=== PATIENT | female | born 1960 | race Caucasian/White ===

== ENCOUNTER 2016-07-16 17:29 | Emergency (ER) | payer BC ==
[2016-07-16 17:32] VITALS: BMI 28.3
[2016-07-16] MEDS ORDERED: Magnesium Sulfate 2 GM in Sodium Chloride 0.9% 100 ML IVPB ONE (17:36)
[2016-07-16 17:38] VITALS: TEMP 98.2
--- NOTE | 2016-07-16 17:41 | ED PDOC ---
Arrival/HPI - General Chief Complaint: Respiratory Distress Time Seen by Provider: 07/16/16 17:34 Historian: Patient - History of Present Illness Narrative History of Present Illness (Text): 07/16/16 17:37 Mayte Mon is a 55 year old female, whose past medical history includes asthma, who presents to the emergency department complaining of asthma exacerbation for 4 days. Patient states that she experiences coughing, wheezing , chest tightness and a slight fever. Patient used her home nebulizer and saw Dr. Adrian, who prescribed medications which brought no relief. Breathing became worse today. Patient denies any other complaint at this time. Time/Duration: < week (4 days) Symptom Onset: Gradual Symptom Course: Worsening Severity Level: Moderate Activities at Onset: Light Context: Home Past Medical History - Provider Review Nursing Documentation Reviewed: Yes - Infectious Disease Hx of Infectious Diseases: None - Tetanus Immunization Tetanus Immunization: Unknown - Reproductive Menopause: Yes - Cardiac Hx Pacemaker: No - Pulmonary Hx Asthma: Yes - Neurological Hx Paralysis: No - HEENT Hx HEENT Disorder: Yes Other/Comment: headaches - Renal Hx Renal Disorder: No - Endocrine/Metabolic Hx Endocrine Disorders: No - Hematological/Oncological Hx Blood Transfusions: No Hx Blood Transfusion Reaction: No - Integumentary Hx Dermatological Disorder: No - Musculoskeletal/Rheumatological Hx Musculoskeletal Disorders: Yes - Gastrointestinal Other/Comment: ABD PAIN - Genitourinary/Gynecological Hx Genitourinary Disorders: No - Psychiatric Hx Substance Use: No - Surgical History Hx Hysterectomy: Yes Hx Inguinal Hernia Repair: Yes Hx Musculoskeletal Surgery: Yes (B/L hammer toe 1991) Other/Comment: BX L BREAST/veins left leg. - Anesthesia Hx Anesthesia Reactions: No Hx Malignant Hyperthermia: No - Suicidal Assessment Feels Threatened In Home Enviroment: No Family/Social History - Physician Review Nursing Documentation Reviewed: Yes Family/Social History: No Known Family HX Smoking Status: Never Smoked Hx Alcohol Use: Yes (social) Frequency of alcohol use: Socially Hx Substance Use: No Hx Substance Use Treatment: No Allergies/Home Meds Allergies/Adverse Reactions: Allergies shrimp Allergy (Intermediate, Verified 06/23/15 14:59) RASH PER PT- DEPENDS ON HOW /WITH WHAT IT SIS COOKED Home Medications: Home Meds Medication Instructions Recorded Confirmed Rosuvastatin Calcium [Crestor] 10 mg PO QPM 01/24/15 06/25/15 Acetaminophen [Tylenol 325mg tab] 650 mg PO Q4 PRN 06/23/15 06/23/15 Albuterol Sulfate [Albuterol 0.09 mg IH QID PRN 06/23/15 06/25/15 Sulfate Hfa] Calcium Carbonate [Tums] 500 mg PO PRN PRN 06/23/15 06/25/15 Cholecalciferol (Vitamin D3) 50,000 unit PO SUN 06/23/15 06/25/15 [Vitamin D] Folic Acid/Mv,Fe,Min [One Daily 1 each PO DAILY 06/23/15 06/25/15 For Women Tablet] Levalbuterol [Xopenex] 1.25 mg IH TID 06/23/15 06/25/15 Prednisone 10 mg PO BID 06/23/15 06/25/15 Omeprazole [Prilosec] 40 mg PO DAILY 06/25/15 06/25/15 Review of Systems - Physician Review All systems were reviewed & negative as marked: Yes - Review of Systems Constitutional: Fevers Eyes: absent: Vision Changes ENT: absent: Hearing Changes Respiratory: SOB, Cough Cardiovascular: Chest Pain (Chest tightness) Gastrointestinal: absent: Abdominal Pain Genitourinary Female: absent: Urine Output Changes Musculoskeletal: absent: Back Pain, Neck Pain Skin: absent: Rash Neurological: absent: Headache, Dizziness Endocrine: absent: Diaphoresis Hemo/Lymphatic: absent: Easy Bleeding Psychiatric: absent: Depression Physical Exam Vital Signs Reviewed: Yes Vital Signs Temp Pulse Resp BP Pulse Ox 07/16/16 19:13 100 H 18 104/64 98 07/16/16 17:36 98.2 F 98 H 20 132/78 99 Temperature: Afebrile Blood Pressure: Normal Pulse: Tachycardic Respiratory Rate: Normal Appearance: Positive for: Well-Appearing, Non-Toxic, Comfortable Pain Distress: None Mental Status: Positive for: Alert and Oriented X 3 - Systems Exam Head: Present: Atraumatic, Normocephalic Pupils: Present: PERRL Extroacular Muscles: Present: EOMI Conjunctiva: Present: Normal Mouth: Present: Moist Mucous Membranes Neck: Present: Normal Range of Motion Respiratory/Chest: Present: Wheezes (Bilateral wheezing ) Cardiovascular: Present: Regular Rate and Rhythm, Normal S1, S2. No: Murmurs Abdomen: Present: Normal Bowel Sounds. No: Tenderness, Distention, Peritoneal Signs Back: Present: Normal Inspection Upper Extremity: Present: Normal Inspection. No: Cyanosis, Edema Lower Extremity: Present: Normal Inspection. No: Edema Neurological: Present: GCS=15, CN II-XII Intact, Speech Normal Skin: Present: Warm, Dry, Normal Color. No: Rashes Psychiatric: Present: Alert, Oriented x 3, Normal Insight, Normal Concentration Medical Decision Making ED Course and Treatment: EKG: Ordered, reviewed, and independently interpreted the EKG. Rate : 103 BPM Rhythm : Sinus Tachycardia Interpretation : No ST-segment elevations or depressions, no T-wave inversions, normal intervals. Comparison : No previous EKG for comparison. 07/16/16 19:00 Reviewed radiology, x-ray no acute disease. No significant change from prior on 03/15/15. 07/16/16 19:10 On reexamination, patient's wheezing significantly improved. Patient states that she feels much better, speaking in full sentences and is in no distress. SPO2 is 97% on room air, patient wishes to go home. Follow up and return caution advised - Lab Interpretations Lab Results: 07/16/16 17:40 07/16/16 17:40 Lab Results 07/16/16 17:40: WBC 4.7 D, RBC 4.96, Hgb 13.5, Hct 41.3, MCV 83.3, MCH 27.2, MCHC 32.7, RDW 14.1, Plt Count 207, MPV 11.7 H, Gran % 58.1, Lymph % (Auto) 28.7 , [place] % (Auto) 10.2 H, Eos % (Auto) 1.9, Baso % (Auto) 1.1, Gran # 2.74, Lymph # 1.4, [place] # 0.5, Eos # 0.1, Baso # 0.05, pO2 44, VBG pH 7.36, VBG pCO2 55.0, VBG HCO3 31.1 H, VBG Total CO2 32.8 H, VBG O2 Sat (Calc) 84.9 H, VBG Base Excess 4.2 H, VBG Potassium 3.1 L, Glucose 78, Lactate 1.3, FiO2 21.0, Sodium 138.0, Potassium 3.1 L, Chloride 107.0, Carbon Dioxide 29, Anion Gap 12, BUN 15 , Creatinine 0.6, Est GFR ( Amer) > 60, Est GFR (Non-Af Amer) > 60, Random Glucose 77, Calcium 8.7, Total Bilirubin 0.4, AST 28, ALT 50, Alkaline Phosphatase 89, Troponin I < 0.01 D, NT-Pro-B Natriuret Pep 45.8, Total Protein 7.6, Albumin 3.8, Globulin 3.8, Albumin/Globulin Ratio 1.0 L, Venous Blood Potassium 3.1 L - RAD Interpretation Radiology Orders: 07/16/16 17:35 CHEST TWO VIEWS (PA/LAT) [RAD] Stat - Medication Orders Current Medication Orders: Discontinued Medications Albuterol/Ipratropium (Duoneb 3 Mg/0.5 Mg (3 Ml) Ud) 3 ml IH Q15M WILNER Stop: 07/16/16 18:16 Last Admin: 07/16/16 18:32 Dose: 3 ML Magnesium Sulfate 2 gm/ Sodium (Chloride) 104 mls @ 102 mls/hr IVPB ONCE ONE Stop: 07/16/16 18:37 Last Admin: 07/16/16 17:45 Dose: 102 MLS/HR eMAR Start Stop Document 07/16/16 17:45 SRE (Rec: 07/16/16 17:45 SRE [facility] [id number] Intravenous Solution Start Date 07/16/16 Start Time 17:45 End Date 07/16/16 End time 18:45 Total Infusion Time 60 Methylprednisolone (Solu-Medrol) 125 mg IVP STAT STA Stop: 07/16/16 17:36 Last Admin: 07/16/16 17:45 Dose: 125 MG IVP Administration Document 07/16/16 17:45 SRE (Rec: 07/16/16 17:45 [facility] [facility] [id number] Charges for Administration # of IVP Administrations 1 - Scribe Statement The provider has reviewed the documentation as recorded by the Harrison Butts Provider Scribe Attestation: All medical record entries made by the Scribe were at my direction and personally dictated by me. I have reviewed the chart and agree that the record accurately reflects my personal performance of the history, physical exam, medical decision making, and the department course for this patient. I have also personally directed, reviewed, and agree with the discharge instructions and disposition. Disposition/Present on Arrival - Present on Arrival Any Indicators Present on Arrival: No History of DVT/PE: No History of Uncontrolled Diabetes: No Urinary Catheter: No History of Decub. Ulcer: No History Surgical Site Infection Following: None - Disposition Have Diagnosis and Disposition been Completed?: Yes Diagnosis: Asthma exacerbation Disposition: HOME/ ROUTINE Disposition Time: 19:15 Condition: IMPROVED Discharge Instructions (ExitCare): Asthma (ED) Additional Instructions: Please follow up with your doctor on Monday. Return to the ER for any worsening symptoms or for any other concerns. Prescriptions: Albuterol/Ipratropium [Duoneb 3 MG/3 Ml-0.5 MG/3 Ml 3 Ml] 3 ml IH Q6H PRN #10 neb PRN Reason: Wheezing Referrals: Ghulam Adrian MD [Family Provider] - Follow up with primary
[2016-07-16] MEDS: Albuterol-Ipratrop 3 mg / 0.5 (3 ml) UD IH SCH ×3 (17:45→18:32)
[2016-07-16 17:59] LABS: ADD MANUAL DIFF? NO
[2016-07-16 18:06] LABS: VENOUS BLOOD GAS BASE EXCESS 4.2 mmol/L (0.0-2.0); VENOUS BLOOD PH 7.36 (7.32-7.43)
[2016-07-16 18:14] LABS: ALKALINE PHOSPHATASE 89 U/L (38-133); ALT/SGPT 50 U/L (7-56); AST/SGOT 28 U/L (15-39); BILIRUBIN,TOTAL 0.4 mg/dL (0.2-1.3); BLOOD UREA NITROGEN 15 mg/dL (7-21); CALCIUM 8.7 mg/dL (8.4-10.5); CARBON DIOXIDE 29 mmol/L (21-33); CHLORIDE 101 mmol/L (98-107); GFR AFRICAN-AMERICAN > 60; GLUCOSE,RANDOM 77 mg/dL (70-110); POTASSIUM 3.1 mmol/L (3.6-5.0); SODIUM 139 mmol/L (132-148); TOTAL PROTEIN 7.6 g/dL (5.8-8.3)
[2016-07-16 18:15] LABS: BASO # 0.05 K/mm3 (0.0-2.0); BASO % 1.1 % (0.0-3.0); EOS # 0.1 (0.0-0.7); EOS % 1.9 % (1.5-5.0); GRAN # 2.74 (1.4-6.5); GRAN % 58.1 % (50.0-68.0); HEMATOCRIT 41.3 % (36.0-48.0); LYMPH # 1.4 (1.2-3.4); LYMPH % 28.7 % (22.0-35.0); MEAN CELL VOLUME 83.3 fL (80.0-105.0); MEAN CORPUSCULAR HEMOGLOBIN 27.2 pg (25.0-35.0); MEAN CORPUSCULAR HGB CONC 32.7 g/dl (31.0-37.0); MEAN PLATELET VOLUME 11.7 fl (7.0-11.0); MONO # 0.5 (0.1-0.6); MONO % 10.2 % (1.0-6.0); PLATELET COUNT 207 10^3/uL (120.0-450.0); RED CELL DISTRIBUTION WIDTH 14.1 % (11.5-14.5); WHITE BLOOD COUNT 4.7 10^3/ul (4.5-11.0)
[2016-07-16 18:28] LABS: TROPONIN I < 0.01 ng/mL
[2016-07-16 19:15] VITALS: BP 104/64; PULSE 100; RESP 18; O2SAT 98
--- NOTE | 2016-07-17 09:54 | CARD ---
APPROVED REPORT EKG Measurement Heart [id number] <Conclusion> Sinus tachycardia and NSSTW changes, new
--- NOTE | 2016-07-17 10:25 | RAD ---
HISTORY: sob COMPARISON: Comparison made with prior study 03/15/2015 TECHNIQUE: Chest PA and lateral FINDINGS: LUNGS: No acute consolidation. There is a vague somewhat rounded density right lower lung field, overlying the right anterior 5th rib that measures approximately 8 mm. This focus is of uncertain etiology sandeep though could represent a costal cartilage artifact. Possibility of a small parenchymal nodule cannot be excluded. . Consider followup nonemergent CT scan of the chest PLEURA: No significant pleural effusion identified. No pneumothorax apparent. . CARDIOVASCULAR: Normal. OSSEOUS STRUCTURES: Mild multilevel degenerative spondylosis of the thoracic spine. The several chronic appearing anterior wedge deformities seen within the mid thoracic region. VISUALIZED UPPER ABDOMEN: Normal. OTHER FINDINGS: None. IMPRESSION: No acute infiltrates. Small nodular density right lung base overlying the right anterior 5th rib may represent costal cartilage artifact. Small parenchymal nodule not excluded.
== END 2016-07-16 19:15 | disposition home or self-care (01) ==
LOC: ED 17:29
DX: J45.901 Unspecified asthma with (acute) exacerbation (principal)
CPT/HCPCS: 71020; 80053; 82803; 83880; 84484; 85025; 93005; 96365; 96375; 99284; J2930; J3475

== ENCOUNTER 2016-11-19 11:35 | Emergency (ER) | payer BC ==
[2016-11-19 11:40] VITALS: BMI 30.2
[2016-11-19 11:56] VITALS: RESP 18; TEMP 98.3
--- NOTE | 2016-11-19 12:15 | ED PDOC ---
Arrival/HPI - General Time Seen by Provider: 11/19/16 11:50 Historian: Patient - History of Present Illness Narrative History of Present Illness (Text): 11/19/16 12:05 A 55 year old female, whose past medical history includes asthma, presents to the emergency department complaining of constant left sided chest pain since last night. Patient describes the pain as a sharp sensation and notes radiating pain to left shoulder. Patient notes mild shortness and a tingling sensation in her left finger tips, which resolved. She reports using nebulizer treatments at home last night, with no relief. Patient denies any trauma, injury, fever, chills, nausea, vomiting, abdominal pain, cough or any other complaints. Patient recently had an echo and stress test done which showed normal results. PMD: Dr. Adrian Chief Engineer Research: Dr. Sullivan Time/Duration: Other (Last night) Symptom Course: Unchanged Quality: Other Context: Home Past Medical History - Provider Review Nursing Documentation Reviewed: Yes - Infectious Disease Hx of Infectious Diseases: None - Tetanus Immunization Tetanus Immunization: Unknown - Cardiac Hx Pacemaker: No - Pulmonary Hx Asthma: Yes - Neurological Hx Paralysis: No - HEENT Hx HEENT Disorder: Yes Other/Comment: headaches - Renal Hx Renal Disorder: No - Endocrine/Metabolic Hx Endocrine Disorders: No - Hematological/Oncological Hx Blood Transfusions: No Hx Blood Transfusion Reaction: No - Integumentary Hx Dermatological Disorder: No - Musculoskeletal/Rheumatological Hx Musculoskeletal Disorders: Yes - Gastrointestinal Other/Comment: ABD PAIN - Genitourinary/Gynecological Hx Genitourinary Disorders: No - Psychiatric Hx Substance Use: No - Surgical History Hx Hysterectomy: Yes Hx Inguinal Hernia Repair: Yes Hx Musculoskeletal Surgery: Yes (B/L hammer toe 1991) Other/Comment: BX L BREAST/veins left leg. - Anesthesia Hx Anesthesia Reactions: No Hx Malignant Hyperthermia: No - Suicidal Assessment Feels Threatened In Home Enviroment: No Family/Social History - Physician Review Nursing Documentation Reviewed: Yes Family/Social History: No Known Family HX Smoking Status: Never Smoked Hx Alcohol Use: Yes (social) Hx Substance Use: No Hx Substance Use Treatment: No Allergies/Home Meds Allergies/Adverse Reactions: Allergies shrimp Allergy (Intermediate, Verified 06/23/15 14:59) RASH PER PT- DEPENDS ON HOW /WITH WHAT IT SIS COOKED Home Medications: Home Meds Medication Instructions Recorded Confirmed Rosuvastatin Calcium [Crestor] 10 mg PO QPM 01/24/15 11/19/16 Albuterol Sulfate [Albuterol 0.09 mg IH QID PRN 06/23/15 11/19/16 Sulfate Hfa] Calcium Carbonate [Tums] 500 mg PO PRN PRN 06/23/15 11/19/16 Cholecalciferol (Vitamin D3) 50,000 unit PO SUN 06/23/15 11/19/16 [Vitamin D] Levalbuterol [Xopenex] 1.25 mg IH TID 06/23/15 11/19/16 Omeprazole [Prilosec] 40 mg PO DAILY 06/25/15 11/19/16 Review of Systems - Physician Review All systems were reviewed & negative as marked: Yes - Review of Systems Constitutional: absent: Fevers, Night Sweats Respiratory: SOB. absent: Cough Cardiovascular: Chest Pain (left sided with radiating pain to left shoulder) Gastrointestinal: absent: Abdominal Pain, Nausea, Vomiting Neurological: Other (Tingling sensation in left finger tips, which resolved) Physical Exam Vital Signs Reviewed: Yes Vital Signs Temp Pulse Resp BP Pulse Ox 11/19/16 16:26 69 18 122/71 97 11/19/16 15:31 71 18 124/75 97 11/19/16 15:12 71 18 121/65 99 11/19/16 13:36 62 18 117/66 99 11/19/16 11:55 98.3 F 81 18 119/68 99 Temperature: Afebrile Blood Pressure: Normal Pulse: Regular Respiratory Rate: Normal Appearance: Positive for: Well-Appearing, Non-Toxic, Comfortable Pain Distress: None Mental Status: Positive for: Alert and Oriented X 3 - Systems Exam Head: Present: Atraumatic, Normocephalic Pupils: Present: PERRL Extroacular Muscles: Present: EOMI Conjunctiva: Present: Normal Mouth: Present: Moist Mucous Membranes Pharnyx: No: ERYTHEMA, EXUDATE, TONSILS ENLARGED Neck: Present: Normal Range of Motion Respiratory/Chest: Present: Clear to Auscultation, Good Air Exchange, Tender to Palpation (left chest wall). No: Respiratory Distress, Accessory Muscle Use Cardiovascular: Present: Regular Rate and Rhythm, Normal S1, S2. No: Murmurs Abdomen: Present: Normal Bowel Sounds. No: Tenderness, Distention, Peritoneal Signs Back: Present: Normal Inspection Upper Extremity: Present: Normal Inspection. No: Cyanosis, Edema Lower Extremity: Present: Normal Inspection. No: Edema Neurological: Present: GCS=15, CN II-XII Intact, Speech Normal Skin: Present: Warm, Dry, Normal Color. No: Rashes Psychiatric: Present: Alert, Oriented x 3, Normal Insight, Normal Concentration Medical Decision Making ED Course and Treatment: 11/19/16 12:05 Impression: A 55 year old female with left sided chest pain radiating to left shoulder. Patient notes mild shortness of breath and a tingling sensation in left finger tips, which resolved. On exam, tenderness to the left chest wall. Differential Diagnosis included but are not limited to: Musculoskeletal secondary to asthma vs. ACS Plan: -- Chest xray -- EKG -- Labs -- Aspirin -- Reassess and disposition Progress Notes: EKG shows NSR at [address]-segment elevations, normal intervals, normal axis. Interpreted by me. Report Date : 11/19/2016 12:42:24 Procedure: Chest xray Dictator : Meet Awad MD IMPRESSION: No active disease. 11/19/16 16:27 Repeat EKG NSR at [address]-segment elevations, normal intervals, nl axis. Interpreted by me 11/19/16 17:05 Patient's symptoms have been persistant since yesterday. Troponin negative x 2. EKG nl and unchanged. There is chest wall tenderness. Not likely cardiac chest pain. Low HEATHER score. Discussed case with Dr. Adrian who agrees she can follow up as an outpatient. He states she had a normal stress test recently. - Lab Interpretations Lab Results: 11/19/16 12:44 11/19/16 12:44 Lab Results 11/19/16 15:50: Lactate Dehydrogenase 342, Total Creatine Kinase 37, Troponin I < 0.01 11/19/16 12:44: Sodium 141, Potassium 4.0, Chloride 104, Carbon Dioxide 26, Anion Gap 15, BUN 12, Creatinine 0.6, Est GFR ( Amer) > 60, Est GFR (Non- Af Amer) > 60, Random Glucose 69 L, Calcium 9.3, Magnesium 2.0, Total Bilirubin 0.4, AST 28, ALT 42, Alkaline Phosphatase 94, Lactate Dehydrogenase 376, Total Creatine Kinase 40, Troponin I < 0.01, Total Protein 7.5, Albumin 4.2, Globulin 3.2, Albumin/Globulin Ratio 1.3 11/19/16 12:44: WBC 6.6 D, RBC 4.91, Hgb 13.1, Hct 40.6, MCV 82.7, MCH 26.7, MCHC 32.3, RDW 13.7, Plt Count 201, MPV 11.9 H, Gran % 56.5, Lymph % (Auto) 30.5 , [place] % (Auto) 7.5 H, Eos % (Auto) 4.9, Baso % (Auto) 0.6, Gran # 3.71, Lymph # 2.0, [place] # 0.5, Eos # 0.3, Baso # 0.04 I have reviewed the lab results: Yes - RAD Interpretation Radiology Orders: 11/19/16 12:07 CHEST PORTABLE [RAD] Stat CXR negative. - Medication Orders Current Medication Orders: Discontinued Medications Aspirin (Aspirin) 325 mg PO STAT STA Stop: 11/19/16 12:08 Last Admin: 11/19/16 12:34 Dose: 325 mg HEATHER Risk Score for UA/NSTEMI - HEATHER Risk Score Age > 64: NO 3 or more CAD Risk Factors: NO Known CAD (Stenosis greater than 50%): NO Aspirin use in past 7 days: NO Severe Angina: NO EKG ST changes greater than 0.5mm: NO Positive Cardiac Marker: NO HEATHER Score: 0 % risk at 14 days of: all cause mortality, new or recurrent [place], or severe recurrent ischemia requiring urgen revascularization: 5% - Scribe Statement The provider has reviewed the documentation as recorded by the Harrison Tapia Provider Scribe Attestation: All medical record entries made by the Cherylibshilpi were at my direction and personally dictated by me. I have reviewed the chart and agree that the record accurately reflects my personal performance of the history, physical exam, medical decision making, and the department course for this patient. I have also personally directed, reviewed, and agree with the discharge instructions and disposition. Disposition/Present on Arrival - Present on Arrival Any Indicators Present on Arrival: No History of DVT/PE: No History of Uncontrolled Diabetes: No Urinary Catheter: No History Surgical Site Infection Following: None - Disposition Have Diagnosis and Disposition been Completed?: Yes Diagnosis: Chest pain Disposition: HOME/ ROUTINE Disposition Time: 17:07 Patient Plan: Discharge Patient Problems: Current Active Problems Problem Status Onset Chest pain Acute Condition: IMPROVED Discharge Instructions (ExitCare): Chest Pain (ED) Additional Instructions: Ms Nowak, thank you for letting us take care of you today. Your provider was Dr. Preston. You were treated for Chest Pain. The emergency medical care you received today was directed at your acute symptoms. If you were prescribed any medication, please fill it and take as directed. It may take several days for your symptoms to resolve. Return to the Emergency Department if your symptoms worsen, do not improve, or if you have any other problems. Please contact your doctor or call one of the physicians/clinics you have been referred to that are listed on the Patient Visit Information form that is included in your discharge packet. Bring any paperwork you were given at discharge with you along with any medications you are taking to your follow up visit. Our treatment cannot replace ongoing medical care by a primary care provider (PCP) outside of the emergency department. Thank you for allowing the [facility] team to be part of your care today. If you had an X-Ray or CT scan: A Radiologist will review the ED reading if any change in treatment is needed we will contact you. If you had a blood, urine, or wound culture: It will take several days for the results, if any change in treatment is needed we will contact you. If you had an STI test: It will take 48 hours for the results. Please call after 1 week if you have not heard back. Referrals: Ghulam Adrian MD [Family Provider] - Follow up with primary Forms: Minggl (Ukrainian), WORK NOTE
--- NOTE | 2016-11-19 12:43 | RAD ---
HISTORY: chest pain COMPARISON: 07/16/2016 FINDINGS: LUNGS: No active pulmonary disease. PLEURA: No significant pleural effusion identified, no pneumothorax apparent. CARDIOVASCULAR: Normal. OSSEOUS STRUCTURES: No significant abnormalities. VISUALIZED UPPER ABDOMEN: Normal. OTHER FINDINGS: None. IMPRESSION: No active disease.
[2016-11-19 13:02] LABS: ALB/GLOB RATIO 1.3 (1.1-1.8); ALKALINE PHOSPHATASE 94 U/L (38-133); ALT/SGPT 42 U/L (7-56); AST/SGOT 28 U/L (15-39); BILIRUBIN,TOTAL 0.4 mg/dL (0.2-1.3); BLOOD UREA NITROGEN 12 mg/dL (7-21); CALCIUM 9.3 mg/dL (8.4-10.5); CARBON DIOXIDE 26 mmol/L (21-33); CHLORIDE 104 mmol/L (98-107); GFR AFRICAN-AMERICAN > 60; GLUCOSE,RANDOM 69 mg/dL (70-110); SODIUM 141 mmol/L (132-148); TOTAL PROTEIN 7.5 g/dL (5.8-8.3)
[2016-11-19 13:12] LABS: BASO # 0.04 K/mm3 (0.0-2.0); BASO % 0.6 % (0.0-3.0); EOS # 0.3 (0.0-0.7); EOS % 4.9 % (1.5-5.0); GRAN # 3.71 (1.4-6.5); GRAN % 56.5 % (50.0-68.0); HEMATOCRIT 40.6 % (36.0-48.0); LYMPH % 30.5 % (22.0-35.0); MEAN CELL VOLUME 82.7 fl (80.0-105.0); MEAN CORPUSCULAR HEMOGLOBIN 26.7 pg (25.0-35.0); MEAN CORPUSCULAR HGB CONC 32.3 g/dl (31.0-37.0); MEAN PLATELET VOLUME 11.9 fl (7.0-11.0); MONO # 0.5 (0.1-0.6); MONO % 7.5 % (1.0-6.0); RED CELL DISTRIBUTION WIDTH 13.7 % (11.5-14.5); WHITE BLOOD COUNT 6.6 10^3/ul (4.5-11.0)
[2016-11-19 13:29] LABS: TROPONIN I < 0.01 ng/mL
[2016-11-19 15:33] VITALS: O2SAT 97
[2016-11-19 16:26] VITALS: BP 122/71; PULSE 69
[2016-11-19 16:35] LABS: TROPONIN I < 0.01 ng/mL
--- NOTE | 2016-11-20 10:59 | CARD ---
APPROVED REPORT EKG Measurement Heart [id number] <Conclusion> Normal sinus rhythm Normal ECG
--- NOTE | 2016-11-20 11:02 | CARD ---
APPROVED REPORT EKG Measurement Heart [id number] <Conclusion> Normal sinus rhythm Normal ECG
== END 2016-11-19 17:06 | disposition home or self-care (01) ==
LOC: ED 11:35
DX: R07.9 Chest pain, unspecified (principal)

== ENCOUNTER 2017-05-09 19:21 | Emergency (ER) | payer BC ==
[2017-05-09 19:21] VITALS: BMI 30.2
[2017-05-09 19:44] VITALS: BP 126/78; PULSE 85; RESP 18; TEMP 98.5; O2SAT 98
--- NOTE | 2017-05-09 20:28 | ED PDOC ---
Arrival/HPI - General Chief Complaint: Flu-like Symptoms Time Seen by Provider: 05/09/17 20:06 Historian: Patient - History of Present Illness Narrative History of Present Illness (Text): 05/09/17 20:22 A 56 year old female presents to the emergency department complaining of a worsening sore throat over the past 6 days. Patient reports she was seen by her PMD who prescribed prednisone and albuterol, with no improvement of symptoms. She reports developing body aches, cough and mild shortness of breath this morning. Patient also reports right shoulder pain radiating down arm since yesterday night. Patient denies any trauma, fever, chills, nausea, vomiting, abdominal pain, chest pain or any other complaints. Past Medical History - Provider Review Nursing Documentation Reviewed: Yes - Infectious Disease Hx of Infectious Diseases: None - Tetanus Immunization Tetanus Immunization: Unknown - Cardiac Hx Pacemaker: No - Pulmonary Hx Asthma: Yes - Neurological Hx Paralysis: No - HEENT Hx HEENT Disorder: Yes Other/Comment: headaches - Renal Hx Renal Disorder: No - Endocrine/Metabolic Hx Endocrine Disorders: No - Hematological/Oncological Hx Blood Transfusions: No Hx Blood Transfusion Reaction: No - Integumentary Hx Dermatological Disorder: No - Musculoskeletal/Rheumatological Hx Musculoskeletal Disorders: Yes - Gastrointestinal Other/Comment: ABD PAIN - Genitourinary/Gynecological Hx Genitourinary Disorders: No - Psychiatric Hx Emotional Abuse: No Hx Physical Abuse: No Hx Substance Use: No - Surgical History Hx Hysterectomy: Yes Hx Musculoskeletal Surgery: Yes (B/L hammer toe 1991) Other/Comment: BX L BREAST/veins left leg. - Anesthesia Hx Anesthesia Reactions: No Hx Malignant Hyperthermia: No - Suicidal Assessment Feels Threatened In Home Enviroment: No Family/Social History - Physician Review Nursing Documentation Reviewed: Yes Family/Social History: No Known Family HX Smoking Status: Never Smoked Hx Alcohol Use: Yes (social) Hx Substance Use: No Hx Substance Use Treatment: No Allergies/Home Meds Allergies/Adverse Reactions: Allergies shrimp Allergy (Intermediate, Verified 06/23/15 14:59) RASH PER PT- DEPENDS ON HOW /WITH WHAT IT SIS COOKED Home Medications: Home Meds Medication Instructions Recorded Confirmed Rosuvastatin Calcium [Crestor] 10 mg PO QPM 01/24/15 11/19/16 Albuterol Sulfate [Albuterol 0.09 mg IH QID PRN 06/23/15 11/19/16 Sulfate Hfa] Calcium Carbonate [Tums] 500 mg PO PRN PRN 06/23/15 11/19/16 Cholecalciferol (Vitamin D3) 50,000 unit PO SUN 06/23/15 11/19/16 [Vitamin D] Levalbuterol [Xopenex] 1.25 mg IH TID 06/23/15 11/19/16 Omeprazole [Prilosec] 40 mg PO DAILY 06/25/15 11/19/16 Review of Systems - Physician Review All systems were reviewed & negative as marked: Yes - Review of Systems Constitutional: absent: Fevers, Night Sweats ENT: Sore Throat Respiratory: SOB, Cough Cardiovascular: absent: Chest Pain Gastrointestinal: absent: Abdominal Pain, Nausea, Vomiting Musculoskeletal: Myalgias Physical Exam - Physical Exam Narrative Physical Exam (Text): Head: Atraumatic. Normocephalic. Eyes: PERRL. EOMI. Conjunctivae are not pale. ENT: Mucous membranes are moist and intact. Oropharynx is clear and symmetric. Neck: Supple. Full ROM. No JVD. No lymphadenopathy. Cardiovascular: Regular rate. Regular rhythm. No murmurs, rubs, or gallops. Distal pulses are 2+ and symmetric. Pulmonary/Chest: No evidence of respiratory distress. Clear to auscultation bilaterally. No wheezing, rales or rhonchi. Abdominal: Soft and non-distended. There is no tenderness. No rebound, guarding, or rigidity. No organomegaly. Good bowel sounds. Back: No CVA tenderness. Extremities: No edema. No cyanosis. No clubbing. Full range of motion in all extremities. No calf tenderness. Palpable pain to right anterior shoulder with no edema or erythema. Skin: Skin is warm and dry. No petechiae. No purpura. Neurological: Alert, awake. Motor and sensory exam intact. Psychiatric: Good eye contact. Normal interaction, affect, and behavior. 05/09/17 22:50 Vital Signs Reviewed: Yes Vital Signs Temp Pulse Resp BP Pulse Ox 05/09/17 19:43 98.5 F 85 18 126/78 98 Temperature: Afebrile Blood Pressure: Normal Pulse: Regular Respiratory Rate: Normal Appearance: Positive for: Well-Appearing, Non-Toxic, Comfortable Pain Distress: None Mental Status: Positive for: Alert and Oriented X 3 Medical Decision Making ED Course and Treatment: 05/09/17 20:22 Impression: A 56 year old female with sore throat, body aches, cough and mild shortness of breath. Patient also notes right shoulder pain radiating down arm. Differential Diagnosis included but are not limited to: pneumonia, asthma, bronchitis, viral illness Plan: -- Chest xray -- EKG -- Labs -- Influenza A B stat -- Reassess and disposition Progress Notes: Patient is afebrile, no respiratory distress or hypoxia. No chest pain or pleuritic pain. No calf pain or swelling. Patient is noted to have chest xray with questionable left lower infiltrate. On re-exam, mild wheezing noted. Nebulizer ordered. Will d/c with zithromax. EKG unchanged from previous. Shoulder pain is palpable, worse with ROM, suspect strain. Symptoms not exertional in nature. Card isos unremarkable. LFTs mildly elevated but no abdominal pain, prior hx of this noted, will recommend f/u with PMD. 05/09/17 22:52 - Lab Interpretations Lab Results: 05/09/17 20:36 05/09/17 20:36 Lab Results 05/09/17 20:36: Influenza Typ A,B (EIA) Negative for flu a/b 05/09/17 20:36: Sodium 141, Potassium 4.1, Chloride 102, Carbon Dioxide 28, Anion Gap 16, BUN 14, Creatinine 0.5 L, Est GFR ( Amer) > 60, Est GFR ( Non-Af Amer) > 60, Random Glucose 148 H, Calcium 9.5, Total Bilirubin 0.2, AST 55 H, ALT 81 H, Alkaline Phosphatase 116, Lactate Dehydrogenase 413, Total Creatine Kinase 39, Troponin I < 0.01, Total Protein 7.0, Albumin 3.7, Globulin 3.4, Albumin/Globulin Ratio 1.1 05/09/17 20:36: PT 11.6, INR 1.02, APTT 30.6 05/09/17 20:36: WBC 9.8 D, RBC 4.52, Hgb 12.1, Hct 38.6, MCV 85.4, MCH 26.8, MCHC 31.3, RDW 14.0, Plt Count 200, MPV 11.4 H, Gran % 83.6 H, Lymph % (Auto) 11.2 L, [place] % (Auto) 3.0, Eos % (Auto) 1.9, Baso % (Auto) 0.3, Gran # 8.22 H, Lymph # (Auto) 1.1 L, [place] # (Auto) 0.3, Eos # (Auto) 0.2, Baso # (Auto) 0.03 I have reviewed the lab results: Yes - RAD Interpretation Narrative RAD Interpretations (Text): 05/09/17 22:51 cxr interpretation by me, ? left lower lobe infiltrate Radiology Orders: 05/09/17 20:25 CHEST TWO VIEWS (PA/LAT) [RAD] Stat Quenching Machine Operator: ED Physician - EKG Interpretation EKG Interpretation (Text): 05/09/17 22:51 EKG at 20:36 normal sinus rhythm rate of 63 Interpreted by ED Physician: Yes Type: 12 lead EKG - Medication Orders Current Medication Orders: Discontinued Medications Albuterol/Ipratropium (Duoneb 3 Mg/0.5 Mg (3 Ml) Ud) 3 ml IH STAT STA Stop: 05/09/17 22:27 Last Admin: 05/09/17 22:39 Dose: 3 ml Azithromycin (Zithromax) 500 mg PO STAT STA PRN Reason: Protocol Stop: 05/09/17 22:28 Last Admin: 05/09/17 22:39 Dose: 500 mg - Scribe Statement The provider has reviewed the documentation as recorded by the Harrison Tapia Provider Scribe Attestation: All medical record entries made by the Scribe were at my direction and personally dictated by me. I have reviewed the chart and agree that the record accurately reflects my personal performance of the history, physical exam, medical decision making, and the department course for this patient. I have also personally directed, reviewed, and agree with the discharge instructions and disposition. Disposition/Present on Arrival - Present on Arrival Any Indicators Present on Arrival: No History of DVT/PE: No History of Uncontrolled Diabetes: No Urinary Catheter: No History of Decub. Ulcer: No History Surgical Site Infection Following: None - Disposition Have Diagnosis and Disposition been Completed?: Yes Diagnosis: Bronchitis Disposition: HOME/ ROUTINE Disposition Time: 22:56 Patient Plan: Discharge Patient Problems: Current Active Problems Problem Status Onset Bronchitis Acute Condition: FAIR Discharge Instructions (ExitCare): Acute Bronchitis (ED), Pneumonia (ED) Additional Instructions: Continue inhaler as needed. For any fever, any chest pain or shortness of breath , any rash, any chills, any abdominal pain, any leg pain or swelling, any persistent or worsening of symptoms, get rechecked. Follow-up with Dr. Adrian in 1- 2days. Prescriptions: Azithromycin [Zithromax] 250 mg PO DAILY #4 tab Referrals: Ghulam Adrian MD [Primary Care Provider] - Follow up with primary Forms: [employer] ([place]), WORK NOTE
[2017-05-09 20:53] LABS: BASO # 0.03 K/mm3 (0.0-2.0); BASO % 0.3 % (0.0-3.0); EOS # 0.2 (0.0-0.7); EOS % 1.9 % (1.5-5.0); GRAN # 8.22 (1.4-6.5); GRAN % 83.6 % (50.0-68.0); HEMOGLOBIN 12.1 g/dL (12.0-16.0); LYMPH # 1.1 (1.2-3.4); LYMPH % 11.2 % (22.0-35.0); MEAN CELL VOLUME 85.4 fl (80.0-105.0); MEAN CORPUSCULAR HEMOGLOBIN 26.8 pg (25.0-35.0); MEAN CORPUSCULAR HGB CONC 31.3 g/dl (31.0-37.0); MEAN PLATELET VOLUME 11.4 fl (7.0-11.0); MONO # 0.3 (0.1-0.6); RBC 4.52 10^6/uL (3.5-6.1); WHITE BLOOD COUNT 9.8 10^3/ul (4.5-11.0)
[2017-05-09 21:01] LABS: ALB/GLOB RATIO 1.1 (1.1-1.8); ALBUMIN 3.7 g/dL (3.0-4.8); ALT/SGPT 81 U/L (7-56); AST/SGOT 55 U/L (14-36); BLOOD UREA NITROGEN 14 mg/dL (7-21); CALCIUM 9.5 mg/dL (8.4-10.5); GFR AFRICAN-AMERICAN > 60; GFR NON-AFRICAN AMERICAN > 60
[2017-05-09 21:06] LABS: INR 1.02 (0.93-1.08); PARTIAL THROMBOPLASTIN TIME 30.6 Seconds (25.1-36.5); PROTHROMBIN TIME 11.6 SECONDS (9.4-12.5)
[2017-05-09 21:12] LABS: TROPONIN I < 0.01 ng/mL
[2017-05-09] MEDS ORDERED: Albuterol-Ipratrop 3 mg / 0.5 (3 ml) UD IH STA (22:26)
--- NOTE | 2017-05-10 09:05 | RAD ---
HISTORY: cough, sob COMPARISON: 11/19/2016 TECHNIQUE: Chest PA and lateral FINDINGS: LUNGS: No active pulmonary disease. PLEURA: No significant pleural effusion identified. No pneumothorax apparent. CARDIOVASCULAR: Normal. OSSEOUS STRUCTURES: No significant abnormalities. VISUALIZED UPPER ABDOMEN: Normal. OTHER FINDINGS: None. IMPRESSION: No active disease.
--- NOTE | 2017-05-10 16:12 | CARD ---
APPROVED REPORT EKG Measurement Heart [id number] <Conclusion> Normal sinus rhythm Normal ECG
== END 2017-05-09 23:12 | disposition home or self-care (01) ==
LOC: ED 19:21
DX: J40 Bronchitis, not specified as acute or chronic (principal)

== ENCOUNTER 2017-08-01 21:05 | Emergency (ER) | payer BC ==
[2017-08-01 21:05] VITALS: BMI 30.2
[2017-08-01 21:35] VITALS: TEMP 98
--- NOTE | 2017-08-01 21:36 | ED PDOC ---
Arrival/HPI - General Chief Complaint: Dizziness/Lightheaded Time Seen by Provider: 08/01/17 21:30 Historian: Patient - History of Present Illness Narrative History of Present Illness (Text): 08/01/17 21:35 Mayte Mon is a 56 year old female, whose past medical history includes hyperlipidemia and asthma, who presents to the Emergency department complaining of light-headedness Patient states she began experiencing intermittent light-headedness since yesterday, with associated headache. Patient also reports wheezing, which she notes is consistent with previous episodes of asthma. Patient states she used her inhaler and nebulizer treatments at home, with minimal relief. Patient denies any fever, chills, chest pain, nausea, vomiting, diarrhea, back pain, neck pain, headache, dizziness, or any other complaints. Symptom Onset: Gradual Symptom Course: Unchanged Activities at Onset: Light Context: Home Past Medical History - Provider Review Nursing Documentation Reviewed: Yes - Infectious Disease Hx of Infectious Diseases: None - Tetanus Immunization Tetanus Immunization: Unknown - Cardiac Hx Pacemaker: No - Pulmonary Hx Asthma: Yes - Neurological Hx Paralysis: No - HEENT Hx HEENT Disorder: Yes Other/Comment: headaches - Renal Hx Renal Disorder: No - Endocrine/Metabolic Hx Endocrine Disorders: No - Hematological/Oncological Hx Blood Transfusions: No Hx Blood Transfusion Reaction: No - Integumentary Hx Dermatological Disorder: No - Musculoskeletal/Rheumatological Hx Musculoskeletal Disorders: Yes - Gastrointestinal Other/Comment: ABD PAIN - Genitourinary/Gynecological Hx Genitourinary Disorders: No - Psychiatric Hx Emotional Abuse: No Hx Physical Abuse: No Hx Substance Use: No - Surgical History Hx Hysterectomy: Yes Hx Musculoskeletal Surgery: Yes (B/L hammer toe 1991) Other/Comment: BX L BREAST/veins left leg. - Anesthesia Hx Anesthesia Reactions: No Hx Malignant Hyperthermia: No - Suicidal Assessment Feels Threatened In Home Enviroment: No Family/Social History - Physician Review Nursing Documentation Reviewed: Yes Family/Social History: Unknown Family HX Smoking Status: Never Smoked Hx Alcohol Use: Yes (social) Hx Substance Use: No Hx Substance Use Treatment: No Allergies/Home Meds Allergies/Adverse Reactions: Allergies shrimp Allergy (Intermediate, Verified 06/23/15 14:59) RASH PER PT- DEPENDS ON HOW /WITH WHAT IT SIS COOKED Home Medications: Home Meds Medication Instructions Recorded Confirmed Rosuvastatin Calcium [Crestor] 10 mg PO QPM 01/24/15 08/01/17 Albuterol Sulfate [Albuterol 0.09 mg IH QID PRN 06/23/15 08/01/17 Sulfate Hfa] Calcium Carbonate [Tums] 500 mg PO PRN PRN 06/23/15 08/01/17 Cholecalciferol (Vitamin D3) 50,000 unit PO SUN 06/23/15 08/01/17 [Vitamin D] Levalbuterol [Xopenex] 1.25 mg IH TID 06/23/15 08/01/17 Omeprazole [Prilosec] 40 mg PO DAILY 06/25/15 08/01/17 Review of Systems - Physician Review All systems were reviewed & negative as marked: Yes - Review of Systems Constitutional: Normal. absent: Fevers Eyes: Normal ENT: Normal Respiratory: Wheezing. absent: SOB Cardiovascular: Normal. absent: Chest Pain Gastrointestinal: Normal. absent: Abdominal Pain, Diarrhea, Nausea, Vomiting Genitourinary Female: Normal. absent: Dysuria, Frequency, Hematuria, Urine Output Changes Musculoskeletal: Normal. absent: Back Pain, Neck Pain Skin: Normal. absent: Rash Neurological: Headache, Other (+light-headedness) Endocrine: Normal Hemo/Lymphatic: Normal Psychiatric: Normal Physical Exam Vital Signs Reviewed: Yes Vital Signs Temp Pulse Resp BP Pulse Ox 08/01/17 21:34 98.0 F 74 20 133/75 96 Temperature: Afebrile Blood Pressure: Normal Pulse: Regular Respiratory Rate: Normal Appearance: Positive for: Well-Appearing, Non-Toxic, Comfortable Pain Distress: None Mental Status: Positive for: Alert and Oriented X 3 - Systems Exam Head: Present: Atraumatic, Normocephalic Pupils: Present: PERRL Extroacular Muscles: Present: EOMI Conjunctiva: Present: Normal Mouth: Present: Moist Mucous Membranes Neck: Present: Normal Range of Motion Respiratory/Chest: Present: Wheezes (Wheezing bilaterally). No: Respiratory Distress, Accessory Muscle Use Cardiovascular: Present: Regular Rate and Rhythm, Normal S1, S2. No: Murmurs Abdomen: No: Tenderness, Distention, Peritoneal Signs Back: Present: Normal Inspection Upper Extremity: Present: Normal Inspection. No: Cyanosis, Edema Lower Extremity: Present: Normal Inspection. No: Edema Neurological: Present: GCS=15, CN II-XII Intact, Speech Normal Skin: Present: Warm, Dry, Normal Color. No: Rashes Psychiatric: Present: Alert, Oriented x 3, Normal Insight, Normal Concentration Medical Decision Making ED Course and Treatment: 08/01/17 21:35 Impression: 56 year old female complaining of light-headedness, headache, and wheezing. Plan: -- CT Head w/o contrast -- EKG -- Chest X-ray -- Labs, cardiac enzymes -- Duoneb -- Reassess and disposition Prior Visits: Notes and results from previous visits were reviewed. On 05/09/2017, pt was seen in the Emergency department for sore throat, body aches, and cough. Progress Notes: 08/01/17 21:36 Reviewed EKG, NSR at 81 bpm. Septal infarct. Non-specific ST/T wave changes. 08/02/17 00:49 Reviewed radiology, Chest X-ray shows no acute processes. CT Head shows: Brain: There is mild prominence of the of sulci, gyri and ventricles. There is no midline shift. There are no intra-axial or extra axial mass lesions or areas of hemorrhage. Waters- white differentiation is maintained. Ventricles: See above. Bony structures: Cranial vault is intact. Soft tissues: unremarkable Sinuses: There is no acute sinusitis. Ears and mastoids: Middle ears and mastoids unremarkable.There is streak artifact from an earring Orbits: Orbital contents are unremarkable. IMPRESSION: No acute intracranial abnormality. 08/02/17 01:25 On re-evaluation, patient feels better and is in no acute distress. I have discussed the results and plan with the patient, who expresses understanding. Patient in agreement with plan to be discharged home. Patient is stable for discharge. Patient was instructed to follow up with physician or return if symptoms worsen or new concerning symptoms arise. - Lab Interpretations Lab Results: 08/01/17 22:48 08/01/17 22:48 Lab Results 08/01/17 22:48: PT 10.4, INR 0.91 L, APTT 34.3 08/01/17 22:48: WBC 8.0, RBC 5.12, Hgb 13.9, Hct 42.5, MCV 83.0, MCH 27.1, MCHC 32.7, RDW 13.7, Plt Count 211, MPV 11.7 H 08/01/17 22:48: Sodium 140, Potassium 4.0, Chloride 103, Carbon Dioxide 26, Anion Gap 14, BUN 13, Creatinine 0.6 L, Est GFR ( Amer) > 60, Est GFR ( Non-Af Amer) > 60, Random Glucose 94, Calcium 9.4, Total Bilirubin 0.2, AST 35, ALT 46, Alkaline Phosphatase 85, Lactate Dehydrogenase 427, Total Creatine Kinase 37, Troponin I < 0.01, Total Protein 7.6, Albumin 4.3, Globulin 3.3, Albumin/Globulin Ratio 1.3 I have reviewed the lab results: Yes - RAD Interpretation Radiology Orders: 08/01/17 21:41 HEAD W/O CONTRAST [CT] Stat 08/01/17 21:42 CHEST ONE VIEW [RAD] Stat Director Of Quantitative Research: ED Physician, Radiologist - EKG Interpretation Interpreted by ED Physician: Yes Type: 12 lead EKG - Medication Orders Current Medication Orders: Discontinued Medications Albuterol/Ipratropium (Duoneb 3 Mg/0.5 Mg (3 Ml) Ud) 3 ml IH ONCE STA Stop: 08/01/17 21:44 Last Admin: 08/01/17 22:40 Dose: 3 ml Albuterol/Ipratropium (Duoneb 3 Mg/0.5 Mg (3 Ml) Ud) 3 ml IH ONCE STA Stop: 08/02/17 01:15 Last Admin: 08/02/17 01:37 Dose: 3 ml - Scribe Statement The provider has reviewed the documentation as recorded by the Harrison Rodriguez Provider Scribe Attestation: All medical record entries made by the Cherylibshilpi were at my direction and personally dictated by me. I have reviewed the chart and agree that the record accurately reflects my personal performance of the history, physical exam, medical decision making, and the department course for this patient. I have also personally directed, reviewed, and agree with the discharge instructions and disposition. Disposition/Present on Arrival - Present on Arrival Any Indicators Present on Arrival: No History of DVT/PE: No History of Uncontrolled Diabetes: No Urinary Catheter: No History of Decub. Ulcer: No History Surgical Site Infection Following: None - Disposition Have Diagnosis and Disposition been Completed?: Yes Diagnosis: Asthma exacerbation Disposition: HOME/ ROUTINE Disposition Time: :25 Patient Plan: Discharge Patient Problems: Current Active Problems Problem Status Onset Asthma exacerbation Acute Condition: GOOD Discharge Instructions (ExitCare): Asthma, Adult (DC) Additional Instructions: Med refill as prescribed/follow up with your doctor this week Prescriptions: Albuterol Sulfate [Proventil Hfa] 2 puff IH Q4 PRN #1 unit PRN Reason: Wheezing Albuterol Sulfate [Proventil Hfa] 2 puff IH Q4 PRN #1 unit PRN Reason: Wheezing Referrals: Ghulam Adrian MD [Primary Care Provider] - Follow up with primary Forms: [employer] (Scottish)
[2017-08-01] MEDS ORDERED: Albuterol-Ipratrop 3 mg / 0.5 (3 ml) UD IH STA (21:43)
[2017-08-01 23:01] LABS: HEMOGLOBIN 13.9 g/dL (12.0-16.0); MEAN CORPUSCULAR HEMOGLOBIN 27.1 pg (25.0-35.0); MEAN CORPUSCULAR HGB CONC 32.7 g/dl (31.0-37.0); MEAN PLATELET VOLUME 11.7 fl (7.0-11.0); RBC 5.12 10^6/uL (3.5-6.1); RED CELL DISTRIBUTION WIDTH 13.7 % (11.5-14.5)
[2017-08-01 23:03] LABS: ALB/GLOB RATIO 1.3 (1.1-1.8); ALBUMIN 4.3 g/dL (3.0-4.8); ALT/SGPT 46 U/L (7-56); AST/SGOT 35 U/L (14-36); BLOOD UREA NITROGEN 13 mg/dL (7-21); CALCIUM 9.4 mg/dL (8.4-10.5); GFR AFRICAN-AMERICAN > 60; GFR NON-AFRICAN AMERICAN > 60
[2017-08-01 23:05] LABS: INR 0.91 (0.93-1.08); PARTIAL THROMBOPLASTIN TIME 34.3 Seconds (25.1-36.5); PROTHROMBIN TIME 10.4 SECONDS (9.4-12.5)
[2017-08-01 23:14] LABS: TROPONIN I < 0.01 ng/mL
--- NOTE | 2017-08-01 23:58 | CT ---
EXAM: CT Head Without Intravenous Contrast EXAM DATE/TIME: 08/01/2017 9:41 PM CLINICAL HISTORY: 56 years old, female; Signs and symptoms; Dizziness; Additional info: Dizzy TECHNIQUE: Axial computed tomography images of the head/brain without intravenous contrast. All CT scans at this facility use one or more dose reduction techniques, viz.: automated exposure control; ma/kV adjustment per patient size (including targeted exams where dose is matched to indication; i.e. head); or iterative reconstruction technique. Coronal and sagittal reformatted images were created and reviewed. COMPARISON: CT - HEAD W/CONTRAST 2017-03-02 14:06 FINDINGS: Brain: There is mild prominence of the of sulci, gyri and ventricles. There is no midline shift. There are no intra-axial or extra axial mass lesions or areas of hemorrhage. Waters-white differentiation is maintained. Ventricles: See above. Bony structures: Cranial vault is intact. Soft tissues: unremarkable Sinuses: There is no acute sinusitis. Ears and mastoids: Middle ears and mastoids unremarkable.There is streak artifact from an earring Orbits: Orbital contents are unremarkable. IMPRESSION: No acute intracranial abnormality
[2017-08-02] MEDS ORDERED: Albuterol-Ipratrop 3 mg / 0.5 (3 ml) UD IH STA (01:14)
[2017-08-02 02:26] VITALS: BP 130/87; PULSE 80; RESP 18; O2SAT 100
--- NOTE | 2017-08-02 09:08 | RAD ---
PROCEDURE: CHEST RADIOGRAPH, 1 VIEW HISTORY: fever COMPARISON: 05/09/2017. FINDINGS: LUNGS: Clear. PLEURA: No pneumothorax or pleural fluid seen. CARDIOVASCULAR: No radiographic findings to suggest acute or significant cardiovascular disease. OSSEOUS STRUCTURES: No significant abnormalities. VISUALIZED UPPER ABDOMEN: Normal. OTHER FINDINGS: None. IMPRESSION: No active disease.No significant interval change compared to the prior examination(s).
--- NOTE | 2017-08-02 19:25 | CARD ---
APPROVED REPORT EKG Measurement Heart [id number] <Conclusion> Normal sinus rhythm Septal infarct, age undetermined Abnormal ECG
== END 2017-08-02 01:45 | disposition home or self-care (01) ==
LOC: ED 21:05
DX: J45.901 Unspecified asthma with (acute) exacerbation (principal); E78.5 Hyperlipidemia, unspecified

== ENCOUNTER 2018-01-21 22:06 | Emergency (ER) | payer BC ==
[2018-01-21 22:14] VITALS: BMI 29.2
[2018-01-21] MEDS ORDERED: Albuterol-Ipratrop 3 mg / 0.5 (3 ml) UD IH STA ×3 (22:17→23:33)
--- NOTE | 2018-01-21 22:17 | ED PDOC ---
Arrival/HPI - General Chief Complaint: Shortness Of Breath Time Seen by Provider: 01/21/18 22:14 Historian: Patient - History of Present Illness Narrative History of Present Illness (Text): 01/21/18 22:16 Mayte Mon is a 56 year old female, whose past medical history includes hyperlipidemia and asthma, who presents to the Emergency department complaining of shortness of breath. Patient states she has been experiencing shortness of breath and wheezing, consistent with her previous asthma symptoms, since earlier this evening. Patient states she used nebulizer treatments at home, with no significant relief, and believes the cold weather may have triggered her symptoms. Patient denies any fever, chills, chest pain, back pain, neck pain, headache, dizziness, or any other complaints. Symptom Onset: Gradual Symptom Course: Unchanged Activities at Onset: Light Context: Home Past Medical History - Provider Review Nursing Documentation Reviewed: Yes - Infectious Disease Hx of Infectious Diseases: None - Tetanus Immunization Tetanus Immunization: Unknown - Cardiac Hx Pacemaker: No - Pulmonary Hx Asthma: Yes - Neurological Hx Paralysis: No - HEENT Hx HEENT Disorder: Yes Other/Comment: headaches - Renal Hx Renal Disorder: No - Endocrine/Metabolic Hx Endocrine Disorders: No - Hematological/Oncological Hx Blood Transfusions: No Hx Blood Transfusion Reaction: No - Integumentary Hx Dermatological Disorder: No - Musculoskeletal/Rheumatological Hx Musculoskeletal Disorders: Yes - Gastrointestinal Other/Comment: ABD PAIN - Genitourinary/Gynecological Hx Genitourinary Disorders: No - Psychiatric Hx Emotional Abuse: No Hx Physical Abuse: No Hx Substance Use: No - Surgical History Hx Hysterectomy: Yes Hx Musculoskeletal Surgery: Yes (B/L hammer toe 1991) Other/Comment: BX L BREAST/veins left leg. - Anesthesia Hx Anesthesia Reactions: No Hx Malignant Hyperthermia: No - Suicidal Assessment Feels Threatened In Home Enviroment: No Family/Social History - Physician Review Nursing Documentation Reviewed: Yes Family/Social History: Unknown Family HX Smoking Status: Never Smoked Hx Alcohol Use: Yes (social) Hx Substance Use: No Hx Substance Use Treatment: No Allergies/Home Meds Allergies/Adverse Reactions: Allergies shrimp Allergy (Intermediate, Verified 06/23/15 14:59) RASH PER PT- DEPENDS ON HOW /WITH WHAT IT SIS COOKED Home Medications: Home Meds Medication Instructions Recorded Confirmed Rosuvastatin Calcium [Crestor] 10 mg PO QPM 01/24/15 08/01/17 Albuterol Sulfate [Albuterol 0.09 mg IH QID PRN 06/23/15 08/01/17 Sulfate Hfa] Calcium Carbonate [Tums] 500 mg PO PRN PRN 06/23/15 08/01/17 Cholecalciferol (Vitamin D3) 50,000 unit PO SUN 06/23/15 08/01/17 [Vitamin D] Levalbuterol [Xopenex] 1.25 mg IH TID 06/23/15 08/01/17 Omeprazole [Prilosec] 40 mg PO DAILY 06/25/15 08/01/17 Review of Systems - Physician Review All systems were reviewed & negative as marked: Yes - Review of Systems Constitutional: Normal. absent: Fevers Eyes: Normal ENT: Normal Respiratory: SOB, Wheezing Cardiovascular: Normal. absent: Chest Pain Gastrointestinal: Normal. absent: Abdominal Pain, Diarrhea, Nausea, Vomiting Genitourinary Female: Normal. absent: Dysuria, Frequency, Hematuria, Urine Output Changes Musculoskeletal: Normal. absent: Back Pain, Neck Pain Skin: Normal. absent: Rash Neurological: Normal. absent: Headache, Dizziness Endocrine: Normal Hemo/Lymphatic: Normal Psychiatric: Normal Physical Exam Vital Signs Reviewed: Yes Temperature: Afebrile Blood Pressure: Normal Pulse: Regular Respiratory Rate: Normal Appearance: Positive for: Well-Appearing, Non-Toxic, Comfortable Pain Distress: None Mental Status: Positive for: Alert and Oriented X 3 - Systems Exam Head: Present: Atraumatic, Normocephalic Pupils: Present: PERRL Extroacular Muscles: Present: EOMI Conjunctiva: Present: Normal Mouth: Present: Moist Mucous Membranes Neck: Present: Normal Range of Motion Respiratory/Chest: Present: Wheezes (Wheezing bilaterally). No: Respiratory Distress, Accessory Muscle Use Cardiovascular: Present: Regular Rate and Rhythm, Normal S1, S2. No: Murmurs Back: Present: Normal Inspection Upper Extremity: Present: Normal Inspection. No: Cyanosis, Edema Neurological: Present: GCS=15, CN II-XII Intact, Speech Normal Skin: Present: Warm, Dry, Normal Color. No: Rashes Psychiatric: Present: Alert, Oriented x 3, Normal Insight, Normal Concentration Medical Decision Making ED Course and Treatment: 01/21/18 22:16 Impression: 57 year old female complaining of shortness of breath and wheezing. Differential Diagnosis included but are not limited to: asthma exacerbation Plan: -- Duoneb -- Solu-medrol -- Reassess and disposition Progress Notes: Reviewed EKG, NSR at [address]-segment elevations or depressions, no T-wave inversions, normal intervals. 01/22/18 00:15 On re-evaluation, patient feels better and is in no acute distress. Wheezing resolved. I have discussed the results and plan with the patient, who expresses understanding. Patient in agreement with plan to be discharged home. Patient is stable for discharge. Patient was instructed to follow up with physician or return if symptoms worsen or new concerning symptoms arise. - EKG Interpretation Interpreted by ED Physician: Yes Type: 12 lead EKG - Scribe Statement The provider has reviewed the documentation as recorded by the Cherylibshilpi Rodriguez Provider Scribe Attestation: All medical record entries made by the Scribe were at my direction and personally dictated by me. I have reviewed the chart and agree that the record accurately reflects my personal performance of the history, physical exam, medical decision making, and the department course for this patient. I have also personally directed, reviewed, and agree with the discharge instructions and disposition. Disposition/Present on Arrival - Present on Arrival Any Indicators Present on Arrival: No History of DVT/PE: No History of Uncontrolled Diabetes: No Urinary Catheter: No History of Decub. Ulcer: No History Surgical Site Infection Following: None - Disposition Have Diagnosis and Disposition been Completed?: Yes Diagnosis: Asthma exacerbation Disposition: HOME/ ROUTINE Disposition Time: 00:12 Patient Plan: Discharge Patient Problems: Current Active Problems Problem Status Onset Asthma exacerbation Acute Condition: GOOD Discharge Instructions (ExitCare): Asthma, Adult (DC) Additional Instructions: Take meds as prescribed/follow up with your doctor this week Prescriptions: predniSONE [Prednisone] 40 mg PO DAILY #10 tab Azithromycin [Z-Preston] 250 mg PO DAILY #6 tab Referrals: Ghulam Adrian MD [Primary Care Provider] - Follow up with primary Forms: [facility] (Lebanese)
[2018-01-22 00:19] VITALS: BP 112/62; PULSE 82; RESP 17; TEMP 98.1; O2SAT 100
--- NOTE | 2018-01-22 16:34 | CARD ---
APPROVED REPORT Date of service: 01/21/2018 EKG Measurement Heart [id number] IN [id number] [id number] <Conclusion> Normal sinus rhythm Normal ECG
== END 2018-01-22 00:19 | disposition home or self-care (01) ==
LOC: ED 22:06
DX: J45.901 Unspecified asthma with (acute) exacerbation (principal); E78.5 Hyperlipidemia, unspecified
CPT/HCPCS: 93005; 96374; 99284; J2930

== ENCOUNTER 2018-05-17 23:31 | Emergency (ER) | payer BC ==
[2018-05-17 23:32] VITALS: BMI 29.2
[2018-05-17] MEDS ORDERED: Sodium Chloride 0.9% 1,000 ML IV STA (23:48)
[2018-05-17 23:50] VITALS: BP 146/71; PULSE 88; RESP 18; TEMP 98.6; O2SAT 100
[2018-05-17] MEDS ORDERED: Atrop/Hyosc/Scopal/PB Elixir (120 ml) PO STA (23:54)
[2018-05-17] MEDS ORDERED: Alum-Mag Hydrox-Simethicone Susp (30 mL) PO STA (23:54)
--- NOTE | 2018-05-17 23:54 | ED PDOC ---
Arrival/HPI - General Chief Complaint: Abdominal Pain Time Seen by Provider: 05/17/18 23:40 Historian: Patient - History of Present Illness Narrative History of Present Illness (Text): 05/17/18 23:51 57 year old female, whose past medical history includes hyperlipidemia and asthma, who presents to the Emergency department complaining of LUQ Pain. Patient informs pain travels to her back as well. Patient also informs of assoc iated dizziness. Patient denies any nausea, vomiting, diarrhea. Patient also denies any fever, chills, chest pain, or any other complaints. 05/18/18 03:22 Time/Duration: Prior to Arrival Symptom Onset: Gradual Symptom Course: Unchanged Quality: Pressure Activities at Onset: Light Context: Home Past Medical History - Provider Review Nursing Documentation Reviewed: Yes - Infectious Disease Hx of Infectious Diseases: None - Tetanus Immunization Tetanus Immunization: Unknown - Cardiac Hx Pacemaker: No - Pulmonary Hx Asthma: Yes - Neurological Hx Paralysis: No - HEENT Hx HEENT Disorder: Yes Other/Comment: headaches - Renal Hx Renal Disorder: No - Endocrine/Metabolic Hx Endocrine Disorders: No - Hematological/Oncological Hx Blood Transfusions: No Hx Blood Transfusion Reaction: No - Integumentary Hx Dermatological Disorder: No - Musculoskeletal/Rheumatological Hx Musculoskeletal Disorders: Yes - Gastrointestinal Other/Comment: ABD PAIN - Genitourinary/Gynecological Hx Genitourinary Disorders: No - Psychiatric Hx Emotional Abuse: No Hx Physical Abuse: No Hx Substance Use: No - Surgical History Hx Hysterectomy: Yes Hx Musculoskeletal Surgery: Yes (B/L hammer toe 1991) Other/Comment: BX L BREAST/veins left leg. - Anesthesia Hx Anesthesia Reactions: No Hx Malignant Hyperthermia: No - Suicidal Assessment Feels Threatened In Home Enviroment: No Family/Social History - Physician Review Nursing Documentation Reviewed: Yes Family/Social History: No Known Family HX Smoking Status: Never Smoked Hx Alcohol Use: Yes (social) Hx Substance Use: No Hx Substance Use Treatment: No Allergies/Home Meds Allergies/Adverse Reactions: Allergies shrimp Allergy (Intermediate, Verified 05/17/18 23:37) RASH PER PT- DEPENDS ON HOW /WITH WHAT IT SIS COOKED Home Medications: Home Meds Medication Instructions Recorded Confirmed Rosuvastatin Calcium [Crestor] 10 mg PO QPM 01/24/15 05/17/18 Albuterol Sulfate [Albuterol 0.09 mg IH QID PRN 06/23/15 05/17/18 Sulfate Hfa] Calcium Carbonate [Tums] 500 mg PO PRN PRN 06/23/15 05/17/18 Cholecalciferol (Vitamin D3) 50,000 unit PO SUN 06/23/15 05/17/18 [Vitamin D] Levalbuterol [Xopenex] 1.25 mg IH TID 06/23/15 05/17/18 Omeprazole [Prilosec] 40 mg PO DAILY 06/25/15 05/17/18 Review of Systems - Physician Review All systems were reviewed & negative as marked: Yes - Review of Systems Constitutional: absent: Fevers, Night Sweats Cardiovascular: absent: Chest Pain Gastrointestinal: Abdominal Pain. absent: Diarrhea, Nausea, Vomiting Musculoskeletal: Back Pain. absent: Neck Pain Neurological: Dizziness Physical Exam Vital Signs Reviewed: Yes Vital Signs Temp Pulse Resp BP Pulse Ox 05/17/18 23:50 98.6 F 88 18 146/71 100 Temperature: Afebrile Blood Pressure: Normal Pulse: Regular Respiratory Rate: Normal Appearance: Positive for: Well-Appearing, Non-Toxic, Comfortable Pain Distress: None Mental Status: Positive for: Alert and Oriented X 3 - Systems Exam Head: Present: Atraumatic, Normocephalic Pupils: Present: PERRL Extroacular Muscles: Present: EOMI Conjunctiva: Present: Normal Mouth: Present: Moist Mucous Membranes Neck: Present: Normal Range of Motion Respiratory/Chest: Present: Good Air Exchange, Wheezes (Minimal scattered wheezes). No: Respiratory Distress, Accessory Muscle Use Cardiovascular: Present: Regular Rate and Rhythm, Normal S1, S2. No: Murmurs Abdomen: Present: Tenderness (LUQ). No: Distention, Peritoneal Signs Back: Present: Normal Inspection Upper Extremity: Present: Normal Inspection. No: Cyanosis, Edema Lower Extremity: Present: Normal Inspection. No: Edema Neurological: Present: GCS=15, CN II-XII Intact, Speech Normal Skin: Present: Warm, Dry, Normal Color. No: Rashes Psychiatric: Present: Alert, Oriented x 3, Normal Insight, Normal Concentration Medical Decision Making ED Course and Treatment: 05/17/18 23:57 Impression: 57 year old female presents with LUQ pain, ro gastritis pancreatitis obstruction Plan: -- Labs -- Chest X-ray -- Maalox -- -- Lidocaine -- Protonix -- Urinalysis -- Reassess and disposition Prior Visits: Notes and results from previous visits were reviewed Progress Notes: 05/18/18 03:12 CT SCAN OF THE ABDOMEN AND PELVIS WITH CONTRAST. CLINICAL HISTORY: Left-sided abdominal pain. TECHNIQUE: Multiple axial and coronal CT images were obtained through the abdomen and pelvis after administration of intravenous contrast material. Comparison: 03/15/2015. COMMENTS: Moderate amount of fecal residue is noted in the large bowels. Moderate diffuse gaseous dilatation of the distal small bowel. The liver is mildly enlarged without mass or defect. There is no intra or extrahepatic biliary ductal dilatation. The spleen is normal. The gallbladder is within normal limits. The pancreas is of normal contour and attenuation characteristics. There is no evidence of adrenal mass. Both kidneys demonstrate prompt and equal nephrograms. The kidneys are normal in size, shape and configuration. There is no evidence of renal or ureteral mass. No renal or ureteral calculi are identified. There is no hydroureter or hydronephrosis. No evidence for appendicitis. There is no bowel wall thickening. No evidence for small or large bowel obstruction. There is no evidence of abdominal ascites or lymphadenopathy. There is no evidence of intrinsic or extrinsic bladder mass. There is no pelvic ascites or lymphadenopathy. Images of the lung bases show no evidence of pleural or parenchymal mass. There are no pleural effusions. The bony structures are free of lytic or blastic lesions. IMPRESSION: Constipation. Ileus. 05/18/18 03:15 Leaving Against Medical Advice (AMA): The patient is choosing to leave against medical advice. I have personally explained to the patient that choosing to do so may result in permanent bodily harm or . I have discussed at great length that without further evaluation and monitoring there may be unforeseen circumstances and/or deterioration causing permanent bodily harm or as a result of their choice. The patient is alert, oriented, and shows the mental capacity to make clear decisions regarding the patients health care at this time. The patient continues to wish to leave against medical advice. In light of the patients decision to leave against medical advice, follow-up has been arranged and the patient is aware of the importance to following up as instructed. The patient has been advised that they should return to the emergency room immediately if they change their mind at any time, or if their condition begins to change or worsen in any way. 05/18/18 03:22 ct shows ileus, requested pt be admitted for bowel rest iv f. she declines has to take care of grandson states will return with worsening - RAD Interpretation Radiology Orders: 05/17/18 23:49 CXR [CHEST PORTABLE] [RAD] Stat - Medication Orders Current Medication Orders: Sodium Chloride (Sodium Chloride 0.9%) 1,000 mls @ 1,000 mls/hr IV .Q1H STA Stop: 05/18/18 00:47 Discontinued Medications Pantoprazole Sodium (Protonix Inj) 40 mg IVP STAT STA Stop: 05/17/18 23:49 - Scribe Statement The provider has reviewed the documentation as recorded by the Scribe Meet Conn Provider Scribe Attestation: All medical record entries made by the Scribe were at my direction and personally dictated by me. I have reviewed the chart and agree that the record accurately reflects my personal performance of the history, physical exam, medical decision making, and the department course for this patient. I have also personally directed, reviewed, and agree with the discharge instructions and disposition. Disposition/Present on Arrival - Present on Arrival Any Indicators Present on Arrival: No History of DVT/PE: No History of Uncontrolled Diabetes: No Urinary Catheter: No History of Decub. Ulcer: No History Surgical Site Infection Following: None - Disposition Have Diagnosis and Disposition been Completed?: Yes Diagnosis: Ileus, Abdominal pain, Left against medical advice Disposition: AGAINST MEDICAL ADVICE Disposition Time: 23:00 Condition: UNKNOWN Discharge Instructions (ExitCare): Acute Abdomen (Belly Pain), Adult (DC), Postoperative Ileus (DC), Leaving Against Medical Advice Additional Instructions: return to any emergency room with worsneing. please see specialist Referrals: Savage Resendez MD [Staff Provider] - Follow up with primary Ghulam Adrian MD [Primary Care Provider] - Follow up with primary Amadeo Marroquin MD [Medical Doctor] - Follow up with primary Forms: [employer] (Mohawk)
[2018-05-18 00:38] LABS: BASO # 0.04 K/mm3 (0.0-2.0); BASO % 0.4 % (0.0-3.0); EOS # 0.6 (0.0-0.7); EOS % 5.7 % (1.5-5.0); HEMOGLOBIN 13.6 g/dL (12.0-16.0); LYMPH # 2.4 (1.2-3.4); LYMPH % 23.6 % (22.0-35.0); MEAN CELL VOLUME 85.6 fl (80.0-105.0); MEAN CORPUSCULAR HEMOGLOBIN 27.3 pg (25.0-35.0); MEAN CORPUSCULAR HGB CONC 31.9 g/dl (31.0-37.0); MONO # 0.7 (0.1-0.6); MONO % 7.1 % (1.0-6.0); RBC 4.99 10^6/uL (3.5-6.1); RED CELL DISTRIBUTION WIDTH 13.7 % (11.5-14.5); URINE BILIRUBIN NEGATIVE (NEGATIVE); URINE BLOOD MODERATE (NEGATIVE); URINE GLUCOSE (UA) NEGATIVE (NEGATIVE); URINE LEUKOCYTE ESTERASE NEGATIVE Leu/uL (NEGATIVE); URINE PROTEIN NEGATIVE mg/dL (<30 mg/dL); URINE UROBILINOGEN 0.2 E.U./dL (<1 E.U./dL)
[2018-05-18 00:44] LABS: URINE APPEARANCE CLEAR (CLEAR); URINE COLOR YELLOW (YELLOW)
[2018-05-18 00:54] LABS: URINE BACTERIA RARE /hpf
[2018-05-18 00:55] LABS: URINE CALCIUM OXALATE CRYSTALS FEW /hpf
[2018-05-18 00:57] LABS: INR 1.04; PARTIAL THROMBOPLASTIN TIME 33.1 Seconds (26.9-38.3); PROTHROMBIN TIME 11.5 SECONDS (9.4-12.5)
[2018-05-18 01:17] LABS: ALB/GLOB RATIO 1.3 (1.1-1.8); ALBUMIN 3.9 g/dL (3.0-4.8); ALT/SGPT 22 U/L (7-56); AST/SGOT 19 U/L (14-36); BILIRUBIN,DIRECT 0.1 mg/dL (0.0-0.4); BLOOD UREA NITROGEN 19 mg/dL (7-21); CALCIUM 8.6 mg/dL (8.4-10.5); GFR NON-AFRICAN AMERICAN > 60; LIPASE 76 U/L (23-300)
[2018-05-18] MEDS ORDERED: Iohexol 350 MG/100 ML VIAL ONE (01:31)
--- NOTE | 2018-05-18 08:38 | CT ---
Date of service: 05/18/2018 PROCEDURE: CT Abdomen and Pelvis with intravenous contrast HISTORY: left sided abd pain COMPARISON: None. TECHNIQUE: Axial images of the abdomen were obtained in the pre contrast, portal venous and delayed phases of enhancement. Coronal and sagittal reformats were generated. Contrast dose: Radiation dose: Total exam DLP = 574.51 mGy-cm. This CT exam was performed using one or more of the following dose reduction techniques: Automated exposure control, adjustment of the mA and/or kV according to patient size, and/or use of iterative reconstruction technique. FINDINGS: LOWER THORAX: Unremarkable. LIVER: Unremarkable. No gross lesion or ductal dilatation. GALLBLADDER AND BILE DUCTS: Unremarkable. PANCREAS: Unremarkable. No gross lesion or ductal dilatation. SPLEEN: Unremarkable. ADRENALS: Unremarkable. No mass. KIDNEYS AND URETERS: Unremarkable. No hydronephrosis. No solid mass. VASCULATURE: Unremarkable. No aortic aneurysm. No aortic atherosclerotic calcification or mural plaque present. BOWEL: Unremarkable. No obstruction. No gross mural thickening. APPENDIX: Normal appendix. PERITONEUM: Unremarkable. No free fluid. No free air. LYMPH NODES: Unremarkable. No enlarged lymph nodes. BLADDER: Unremarkable. REPRODUCTIVE: Hysterectomy. BONES: No acute fracture. OTHER FINDINGS: None. IMPRESSION: Hysterectomy.
--- NOTE | 2018-05-18 10:22 | RAD ---
Date of service: 05/18/2018 HISTORY: abd pain COMPARISON: Comparison is made with 08/01/2017 FINDINGS: LUNGS: No active pulmonary disease. PLEURA: No significant pleural effusion identified, no pneumothorax apparent. CARDIOVASCULAR: No aortic atherosclerotic calcification present. Normal cardiac size. No pulmonary vascular congestion. OSSEOUS STRUCTURES: No significant abnormalities. VISUALIZED UPPER ABDOMEN: Normal. OTHER FINDINGS: None. IMPRESSION: No evidence of new infiltrate or consolidation in the lungs.
== END 2018-05-18 03:23 | disposition left against medical advice (07) ==
LOC: ED 23:31
DX: K56.7 Ileus, unspecified (principal); R10.12 Left upper quadrant pain; E78.5 Hyperlipidemia, unspecified
CPT/HCPCS: 71045; 74177; 80053; 81001; 82248; 83690; 83735; 85025; 85610; 85730; 99283; Q9967

== ENCOUNTER 2018-06-08 20:32 | Emergency (ER) | payer BC ==
[2018-06-08 20:32] VITALS: BMI 29.2
[2018-06-08 20:45] VITALS: BP 107/69; PULSE 84; RESP 17; TEMP 97.9; O2SAT 99
--- NOTE | 2018-06-08 21:29 | ED PDOC ---
Arrival/HPI - General Chief Complaint: Allergic Reaction Time Seen by Provider: 06/08/18 20:34 Historian: Patient - History of Present Illness Narrative History of Present Illness (Text): 06/08/18 21:34 A 57 year old female presents to the emergency department complaining of rash to perioral area since earlier today. Patient reports she knows she is allergic to shrimp but ate it tonight anyway. Patient notes she took benadryl 25 g for her symptoms and states she feels itchy to the rest of her body. Patient denies any tongue swelling, facial swelling, difficulty breathing, or any other complaints. PMD: Dr. Adrian Time/Duration: 4-6 hours Symptom Onset: Sudden Symptom Course: Unchanged Activities at Onset: Eating Context: Home Past Medical History - Provider Review Nursing Documentation Reviewed: Yes - Infectious Disease Hx of Infectious Diseases: None - Tetanus Immunization Tetanus Immunization: Unknown - Cardiac Hx Pacemaker: No - Pulmonary Hx Asthma: Yes - Neurological Hx Paralysis: No - HEENT Hx HEENT Disorder: Yes Other/Comment: headaches - Renal Hx Renal Disorder: No - Endocrine/Metabolic Hx Endocrine Disorders: No - Hematological/Oncological Hx Blood Transfusions: No Hx Blood Transfusion Reaction: No - Integumentary Hx Dermatological Disorder: No - Musculoskeletal/Rheumatological Hx Musculoskeletal Disorders: Yes - Gastrointestinal Other/Comment: ABD PAIN - Genitourinary/Gynecological Hx Genitourinary Disorders: No - Psychiatric Hx Emotional Abuse: No Hx Physical Abuse: No Hx Substance Use: No - Surgical History Hx Hysterectomy: Yes Hx Musculoskeletal Surgery: Yes (B/L hammer toe 1991) Other/Comment: BX L BREAST/veins left leg. - Anesthesia Hx Anesthesia: Yes Hx Anesthesia Reactions: No Hx Malignant Hyperthermia: No - Suicidal Assessment Feels Threatened In Home Enviroment: No Family/Social History - Physician Review Nursing Documentation Reviewed: Yes Family/Social History: No Known Family HX Smoking Status: Never Smoked Hx Alcohol Use: Yes (social) Frequency of alcohol use: Socially Hx Substance Use: No Hx Substance Use Treatment: No Allergies/Home Meds Allergies/Adverse Reactions: Allergies shrimp Allergy (Intermediate, Verified 06/08/18 20:46) RASH PER PT- DEPENDS ON HOW /WITH WHAT IT SIS COOKED Home Medications: Home Meds Medication Instructions Recorded Confirmed Rosuvastatin Calcium [Crestor] 10 mg PO QPM 01/24/15 05/17/18 Albuterol Sulfate [Albuterol 0.09 mg IH QID PRN 06/23/15 05/17/18 Sulfate Hfa] Calcium Carbonate [Tums] 500 mg PO PRN PRN 06/23/15 05/17/18 Cholecalciferol (Vitamin D3) 50,000 unit PO SUN 06/23/15 05/17/18 [Vitamin D] Levalbuterol [Xopenex] 1.25 mg IH TID 06/23/15 05/17/18 Omeprazole [Prilosec] 40 mg PO DAILY 06/25/15 05/17/18 Review of Systems - Physician Review All systems were reviewed & negative as marked: Yes - Review of Systems Respiratory: absent: SOB Skin: Rash (rash to perioral area). absent: Other (no tongue or facial swelling) Physical Exam Vital Signs Reviewed: Yes Vital Signs Temp Pulse Resp BP Pulse Ox 06/08/18 20:42 97.9 F 84 17 107/69 99 Temperature: Afebrile Blood Pressure: Normal Pulse: Regular Respiratory Rate: Normal - Systems Exam Head: Present: Atraumatic, Normocephalic Pupils: Present: PERRL Extroacular Muscles: Present: EOMI Conjunctiva: Present: Normal Mouth: Present: Other (erythemetous rash to perioral area and suprapubic area) Pharnyx: Present: Normal. No: ERYTHEMA, EXUDATE, Muffled/Hoarse Voice, Strider Neck: Present: Normal Range of Motion Respiratory/Chest: Present: Clear to Auscultation, Good Air Exchange. No: Respiratory Distress, Accessory Muscle Use, Wheezes Cardiovascular: Present: Regular Rate and Rhythm, Normal S1, S2. No: Murmurs Upper Extremity: Present: Normal Inspection. No: Cyanosis, Edema Lower Extremity: Present: Normal Inspection. No: Edema Neurological: Present: GCS=15, CN II-XII Intact, Speech Normal Skin: Present: Warm, Dry, Normal Color. No: Rashes Psychiatric: Present: Alert, Oriented x 3, Normal Insight, Normal Concentration Medical Decision Making ED Course and Treatment: 06/08/18 21:39 Impression: 57 year old female presenting to the emergency room complaining of rash to perioral area. Plan: -- Benadryl -- Pepcid -- Solumedrol -- Reassess and disposition Prior Visits: Notes and results from previous visits were reviewed. Progress Notes: On reevaluation, patient reports that her symptoms are improving. On exam, patient remains awake alert and oriented 3 in no acute distress, breathing easy and unlabored, speaking in full sentences. Advised to follow up with primary care physician in 1-2 days without fail. Advised to take medication as prescribed. Return to the emergency room at any time for any new or worsening symptoms. Patient states she fully agrees with and understands discharge instructions. States that she agrees with the plan and disposition. Verbalized and repeated discharge instructions and plan. I have given the patient opportunity to ask any additional questions. - Medication Orders Current Medication Orders: Discontinued Medications Diphenhydramine HCl (Benadryl) 25 mg PO STAT STA Stop: 06/08/18 21:06 Last Admin: 06/08/18 21:13 Dose: 25 mg Famotidine (Pepcid) 40 mg PO STAT STA Stop: 06/08/18 21:06 Last Admin: 06/08/18 21:13 Dose: 40 mg Methylprednisolone (Solu-Medrol) 125 mg IM STAT STA Stop: 06/08/18 21:06 Last Admin: 06/08/18 21:13 Dose: 125 mg IM Administration Charges Document 06/08/18 21:13 PALOMO (Rec: 06/08/18 21:13 PALOMO [id number]) Injection Site MAR Injection Site Right Deltoid Charges for Administration # of IM Administrations 1 - PA / MOLD PARTER / Resident Statement MD/DO has reviewed & agrees with the documentation as recorded. - Scribe Statement The provider has reviewed the documentation as recorded by the Harrison Butts All medical record entries made by the Cherylibshilpi were at my direction and personally dictated by me. I have reviewed the chart and agree that the record a ccurately reflects my personal performance of the history, physical exam, medical decision making, and the department course for this patient. I have also personally directed, reviewed, and agree with the discharge instructions and disposition. Disposition/Present on Arrival - Present on Arrival Any Indicators Present on Arrival: No History of DVT/PE: No History of Uncontrolled Diabetes: No Urinary Catheter: No History of Decub. Ulcer: No History Surgical Site Infection Following: None - Disposition Have Diagnosis and Disposition been Completed?: Yes Diagnosis: Food allergy Disposition: HOME/ ROUTINE Disposition Time: 21:30 Patient Plan: Discharge Condition: STABLE Discharge Instructions (ExitCare): Food Allergy Additional Instructions: Thank you for letting us take care of you today. You were treated for food allergy. The emergency medical care you received today was directed at your acute symptoms. If you were prescribed any medication, please fill it and take as directed. It may take several days for your symptoms to resolve. Return to the Emergency Department if your symptoms worsen, do not improve, or if you have any other problems. Please contact your doctor in 2 days for re-evaluation and follow up. Bring any paperwork you were given at discharge with you along with any medications you are taking to your follow up visit. Our treatment cannot replace ongoing medical care by a primary care provider (PCP) outside of the emergency department. Thank you for allowing the [facility] team to be part of your care today. Prescriptions: DiphenhydrAMINE [Benadryl] 25 mg PO TID #20 cap Famotidine [Pepcid] 40 mg PO DAILY #20 tablet predniSONE [predniSONE Tab] 40 mg PO DAILY #8 tab Referrals: Ghulam Adrian MD [Primary Care Provider] - Follow up with primary Forms: [employer] (Italian), WORK NOTE
== END 2018-06-08 21:39 | disposition home or self-care (01) ==
LOC: ED 20:32
DX: L27.2 Dermatitis due to ingested food (principal)
CPT/HCPCS: 96372; 99282; J2930

== ENCOUNTER 2018-06-22 20:54 | Emergency (ER) | payer BC ==
[2018-06-22 20:54] VITALS: BMI 29.2
[2018-06-22 21:08] VITALS: TEMP 97.5
[2018-06-22] MEDS ORDERED: Sodium Chloride 0.9% 1,000 ML IV STA (21:43)
--- NOTE | 2018-06-22 21:51 | ED PDOC ---
Arrival/HPI - General Chief Complaint: Weakness/Neurological Deficit Time Seen by Provider: 06/22/18 21:12 Historian: Patient - History of Present Illness Narrative History of Present Illness (Text): 06/22/18 21:43 57 year old female, with past medical history of asthma, presents to emergency department complaining of intermittent left-sided headache since this Monday with dizziness today.Headache is relieved with tylenol, not thunderclap, no associated visual disturbance. Patient describes her dizziness as a room spinning sensation and states that she has had headaches in the past year as well which she has visited the ER for and had a CT scan. Patient also notes slight nausea but denies any vomiting, fever, neck pain, or any other complaints. Patient reports taking medication currently for her cholesterol. PMD: 06/23/18 02:01 Time/Duration: Other (Monday ) Symptom Onset: Sudden Symptom Course: Unchanged Severity Level: 4 (currently, after taking Tylenol ) Activities at Onset: Light Context: Home Past Medical History - Provider Review Nursing Documentation Reviewed: Yes - Infectious Disease Hx of Infectious Diseases: None - Tetanus Immunization Tetanus Immunization: Unknown - Cardiac Hx Pacemaker: No - Pulmonary Hx Asthma: Yes - Neurological Hx Paralysis: No - HEENT Hx HEENT Disorder: Yes Other/Comment: headaches - Renal Hx Renal Disorder: No - Endocrine/Metabolic Hx Endocrine Disorders: No - Hematological/Oncological Hx Blood Transfusions: No Hx Blood Transfusion Reaction: No - Integumentary Hx Dermatological Disorder: No - Musculoskeletal/Rheumatological Hx Musculoskeletal Disorders: Yes - Gastrointestinal Other/Comment: ABD PAIN - Genitourinary/Gynecological Hx Genitourinary Disorders: No - Psychiatric Hx Emotional Abuse: No Hx Physical Abuse: No Hx Substance Use: No - Surgical History Hx Hysterectomy: Yes Hx Musculoskeletal Surgery: Yes (B/L hammer toe 1991) Other/Comment: BX L BREAST/veins left leg. - Anesthesia Hx Anesthesia: Yes Hx Anesthesia Reactions: No Hx Malignant Hyperthermia: No - Suicidal Assessment Feels Threatened In Home Enviroment: No Family/Social History - Physician Review Nursing Documentation Reviewed: Yes Family/Social History: No Known Family HX Smoking Status: Never Smoked Hx Alcohol Use: Yes (social) Hx Substance Use: No Hx Substance Use Treatment: No Allergies/Home Meds Allergies/Adverse Reactions: Allergies shrimp Allergy (Intermediate, Verified 06/22/18 21:00) RASH PER PT- DEPENDS ON HOW /WITH WHAT IT SIS COOKED cat dander Allergy (Verified 06/22/18 21:00) ITCHING dog dander Allergy (Verified 06/22/18 21:00) ITCHING Home Medications: Home Meds Medication Instructions Recorded Confirmed Rosuvastatin Calcium [Crestor] 10 mg PO QPM 01/24/15 06/22/18 Albuterol Sulfate [Albuterol 0.09 mg IH QID PRN 06/23/15 06/22/18 Sulfate Hfa] Calcium Carbonate [Tums] 500 mg PO PRN PRN 06/23/15 06/22/18 Cholecalciferol (Vitamin D3) 50,000 unit PO SUN 06/23/15 06/22/18 [Vitamin D] Levalbuterol [Xopenex] 1.25 mg IH TID 06/23/15 06/22/18 Omeprazole [Prilosec] 40 mg PO DAILY 06/25/15 06/22/18 Review of Systems - Physician Review All systems were reviewed & negative as marked: Yes - Review of Systems Constitutional: absent: Fevers Respiratory: absent: SOB, Cough Cardiovascular: absent: Chest Pain Gastrointestinal: Nausea. absent: Abdominal Pain, Diarrhea, Vomiting Genitourinary Female: absent: Urine Output Changes Musculoskeletal: absent: Back Pain, Neck Pain Skin: absent: Rash Neurological: Headache (left-sided ), Dizziness Physical Exam - Physical Exam Narrative Physical Exam (Text): 06/22/18 21:52 Gen: VS reviewed, alert, well developed, well nourished, nontoxic, mild distress (every patient is mild distress unless otherwise stated) Do not place this statement in any chart Eye: EOMI, PERRL Neck: no JVD, supple, no adenopathy CV: regular rate, regular rhythm, no rubs,no murmur, S1, S2 Pulm: no distress, clear to auscultation, no wheeze, no rhonchi, breath sounds equal, no rales Abd: soft, nontender, no guarding, no rebound, no rigidity Ext: no edema Skin: good color, no rash, no cyanosis Psych: responds appropriately to questions, normal affect Neuro: negative jolt test Vital Signs Reviewed: Yes Vital Signs Temp Pulse Resp BP Pulse Ox 06/22/18 21:02 97.5 F L 84 18 119/80 96 Temperature: Afebrile Blood Pressure: Normal Pulse: Regular Respiratory Rate: Normal Appearance: Positive for: Well-Appearing, Non-Toxic, Comfortable Pain Distress: None Mental Status: Positive for: Alert and Oriented X 3 Medical Decision Making ED Course and Treatment: 06/22/18 21:53 Impression: 57 year old female presents to emergency department for headaches since Monday and dizziness that began today. Plan: -- Reassess and disposition Prior Visits: Notes and results from previous visits were reviewed. Progress Notes: 06/23/18 00:00 on re-eval at bedside, patient updated on labs and still awaiting CT, patient states that she no longer feels dizzy and her headache has resolved 06/23/18 02:03 patient seen for intermittent left sided headaches, no scalp tenderness/nodules, no thunderclap headache or neck stiffness, no associated trauma or fever. Patient remained stable throughout ED course and symptoms resolved. Patient understands and is agreeable to plan. Recommend follow up with neurology and to return for any new or worsening symptoms. Patient did not exhibit any vertigo- like symptoms during Ed course and did not have any neuro deficits on exam. 06/23/18 02:14 - RAD Interpretation Narrative RAD Interpretations (Text): 06/23/18 01:38 CT Head IMPRESSION: Normal unenhanced CT scan of the brain. Electronically signed on Jun 23, 2018 1:38:57 AM EDT by: Tomeka Her M.D., Certified by ABR, MSK, Neuroradiology Welding Machine Tender: Radiologist - EKG Interpretation EKG Interpretation (Text): 06/23/18 00:36 21:35: nsr at 77 bpm, nml qrs, nml axis, no acute sttw abn Interpreted by ED Physician: Yes - Scribe Statement The provider has reviewed the documentation as recorded by the Scribe [place] All medical record entries made by the Scribe were at my direction and personally dictated by me. I have reviewed the chart and agree that the record accurately reflects my personal performance of the history, physical exam, medical decision making, and the department course for this patient. I have also personally directed, reviewed, and agree with the discharge instructions and disposition. Disposition/Present on Arrival - Present on Arrival Any Indicators Present on Arrival: No History of DVT/PE: No History of Uncontrolled Diabetes: No Urinary Catheter: No History of Decub. Ulcer: No History Surgical Site Infection Following: None - Disposition Have Diagnosis and Disposition been Completed?: Yes Diagnosis: Headache, Vertigo Disposition: HOME/ ROUTINE Disposition Time: 02:07 Patient Plan: Discharge Patient Problems: Current Active Problems Problem Status Onset Headache Acute Vertigo Acute Condition: STABLE Discharge Instructions (ExitCare): Vertigo (a Type of Dizziness), Headache, Adult (DC) Additional Instructions: stay well hydrated (water). return for any new or worsening symptoms. follow up with a neurologist as soon as possible. Prescriptions: Meclizine [Meclizine*] 25 mg PO TID #15 tab Referrals: Ihsan Alamo MD [Staff Provider] - Follow up with primary Seth Roy MD [Staff Provider] - Follow up with primary Demetria Tomlin MD [Staff Provider] - Follow up with primary Forms: [facility] (Micronesian), WORK NOTE
[2018-06-22 22:12] LABS: BASO # 0.06 K/mm3 (0.0-2.0); EOS # 0.5 (0.0-0.7); EOS % 7.6 % (1.5-5.0); HEMOGLOBIN 13.6 g/dL (12.0-16.0); MEAN CELL VOLUME 86.5 fl (80.0-105.0); MEAN CORPUSCULAR HEMOGLOBIN 27.3 pg (25.0-35.0); MEAN CORPUSCULAR HGB CONC 31.6 g/dl (31.0-37.0); MEAN PLATELET VOLUME 11.3 fl (7.0-11.0); MONO # 0.4 (0.1-0.6); MONO % 6.2 % (1.0-6.0); RBC 4.98 10^6/uL (3.5-6.1); RED CELL DISTRIBUTION WIDTH 13.7 % (11.5-14.5); WHITE BLOOD COUNT 6.3 10^3/uL (4.5-11.0)
[2018-06-22 22:22] LABS: INR 0.97; PARTIAL THROMBOPLASTIN TIME 33.2 Seconds (26.9-38.3); PROTHROMBIN TIME 10.8 SECONDS (9.4-12.5)
[2018-06-22 22:25] LABS: ALB/GLOB RATIO 1.2 (1.1-1.8); ALBUMIN 3.9 g/dL (3.0-4.8); ALT/SGPT 28 U/L (7-56); AST/SGOT 34 U/L (14-36); BLOOD UREA NITROGEN 15 mg/dL (7-21); CALCIUM 8.8 mg/dL (8.4-10.5); GFR NON-AFRICAN AMERICAN > 60
[2018-06-23 03:19] VITALS: BP 115/62; PULSE 77; RESP 16; O2SAT 100
--- NOTE | 2018-06-23 10:43 | CT ---
Date of service: 06/23/2018 PROCEDURE: CT HEAD WITHOUT CONTRAST. HISTORY: Headache COMPARISON: 08/01/2017. TECHNIQUE: Axial computed tomography images were obtained through the head/brain without intravenous contrast. Radiation dose: Total exam DLP = 885.48 mGy-cm. This CT exam was performed using one or more of the following dose reduction techniques: Automated exposure control, adjustment of the mA and/or kV according to patient size, and/or use of iterative reconstruction technique. FINDINGS: HEMORRHAGE: No intracranial hemorrhage. BRAIN: Waters-white matter differentiation is preserved. There is no mass, mass effect or abnormal extra-axial fluid collection. There is no territorial infarction. The midline sagittal structures are normal. VENTRICLES: The ventricles are normal in size, shape and configuration. CALVARIUM: There is no calvarial fracture or extracranial soft tissue swelling. PARANASAL SINUSES: There is a retention cyst/polyp in the left maxillary sinus. The remaining included paranasal sinuses are clear. MASTOID AIR CELLS: Predominantly clear. OTHER FINDINGS: None. IMPRESSION: No acute intracranial abnormality. A preliminary report was provided by [employer].
--- NOTE | 2018-06-23 14:53 | CARD ---
APPROVED REPORT Date of service: 06/22/2018 EKG Measurement Heart [id number] <Conclusion> Normal sinus rhythm Normal ECG
== END 2018-06-23 02:45 | disposition home or self-care (01) ==
LOC: ED 20:54
DX: R51 Headache (principal); R42 Dizziness and giddiness
CPT/HCPCS: 70450; 80053; 85025; 85610; 85730; 93005; 96360; 99285; J7030

== ENCOUNTER 2018-08-08 20:15 | Emergency (ER) | payer BC ==
[2018-08-08 20:27] VITALS: BP 136/82; PULSE 87; RESP 18; TEMP 98.2; O2SAT 98; BMI 30.2
[2018-08-08] MEDS ORDERED: Albuterol-Ipratrop 3 mg / 0.5 (3 ml) UD IH STA ×2 (20:42→21:48)
--- NOTE | 2018-08-08 22:10 | ED PDOC ---
Arrival/HPI - General Chief Complaint: Shortness Of Breath Time Seen by Provider: 08/08/18 20:37 Historian: Patient - History of Present Illness Narrative History of Present Illness (Text): 08/08/18 20:45 57-year-old female with a history of asthma presents today with a 2 day history of worsening asthma. Patient states she is having cough and diffuse wheezing. Patient states she has been using her nebulizer at home without improvement. Patient states she was seen by her primary care physician yesterday and was started on a Medrol Dosepak as well as Levaquin. Patient thinks she needs stronger steroids. Patient denies chest pain. She denies abdominal pain. No nausea vomiting diarrhea or constipation. No dizziness or weakness. Patient denies any prior history of intubation due to asthma exacerbation. Patient sta skyla she has not been hospitalized for a long time due to her asthma. Past Medical History - Provider Review Nursing Documentation Reviewed: Yes Primary Care Provider: Ghulam Adrian - Travel History Have you recently traveled outside [place] w/in the past 3 mons?: No - Infectious Disease Hx of Infectious Diseases: None - Tetanus Immunization Tetanus Immunization: Unknown - Cardiac Hx Pacemaker: No - Pulmonary Hx Asthma: Yes - Neurological Hx Paralysis: No - HEENT Hx HEENT Disorder: Yes Other/Comment: headaches - Renal Hx Renal Disorder: No - Endocrine/Metabolic Hx Endocrine Disorders: No - Hematological/Oncological Hx Blood Transfusions: No Hx Blood Transfusion Reaction: No - Integumentary Hx Dermatological Disorder: No - Musculoskeletal/Rheumatological Hx Musculoskeletal Disorders: Yes - Gastrointestinal Other/Comment: h/o incarcerated hernia - Genitourinary/Gynecological Hx Genitourinary Disorders: No - Psychiatric Hx Anxiety: Yes Hx Emotional Abuse: No Hx Physical Abuse: No Hx Substance Use: No - Surgical History Hx Hysterectomy: Yes Hx Musculoskeletal Surgery: Yes (B/L hammer toe 1991) Other/Comment: BX L BREAST/veins left leg. - Anesthesia Hx Anesthesia: Yes Hx Anesthesia Reactions: No Hx Malignant Hyperthermia: No - Suicidal Assessment Feels Threatened In Home Enviroment: No Family/Social History - Physician Review Nursing Documentation Reviewed: Yes Family/Social History: Unknown Family HX Smoking Status: Never Smoked Hx Alcohol Use: Yes (social) Hx Substance Use: No Hx Substance Use Treatment: No Allergies/Home Meds Allergies/Adverse Reactions: Allergies shrimp Allergy (Intermediate, Verified 06/22/18 21:00) RASH PER PT- DEPENDS ON HOW /WITH WHAT IT SIS COOKED cat dander Allergy (Verified 06/22/18 21:00) ITCHING dog dander Allergy (Verified 06/22/18 21:00) ITCHING Home Medications: Home Meds Medication Instructions Recorded Confirmed Rosuvastatin Calcium [Crestor] 10 mg PO QPM 01/24/15 06/22/18 Albuterol Sulfate [Albuterol 0.09 mg IH QID PRN 06/23/15 06/22/18 Sulfate Hfa] Calcium Carbonate [Tums] 500 mg PO PRN PRN 06/23/15 06/22/18 Cholecalciferol (Vitamin D3) 50,000 unit PO SUN 06/23/15 06/22/18 [Vitamin D] Levalbuterol [Xopenex] 1.25 mg IH TID 06/23/15 06/22/18 Omeprazole [Prilosec] 40 mg PO DAILY 06/25/15 06/22/18 Review of Systems - Review of Systems Constitutional: absent: Fatigue, Fevers Respiratory: SOB, Cough, Wheezing Cardiovascular: absent: Chest Pain, Palpitations Gastrointestinal: absent: Abdominal Pain, Constipation, Diarrhea, Nausea, Vomiting Genitourinary Female: absent: Dysuria, Frequency, Hematuria Musculoskeletal: absent: Arthralgias, Back Pain, Neck Pain Skin: absent: Rash, Pruritis Neurological: absent: Headache, Dizziness Psychiatric: absent: Anxiety, Depression, Suicidal Ideation Physical Exam Vital Signs Reviewed: Yes Vital Signs Temp Pulse Resp BP Pulse Ox 08/08/18 20:26 98.2 F 87 18 136/82 98 Temperature: Afebrile Blood Pressure: Normal Pulse: Regular Respiratory Rate: Normal Appearance: Positive for: Well-Appearing, Non-Toxic, Comfortable Pain Distress: None Mental Status: Positive for: Alert and Oriented X 3 - Systems Exam Head: Present: Atraumatic Mouth: Present: Moist Mucous Membranes Neck: Present: Normal Range of Motion Respiratory/Chest: Present: Good Air Exchange, Wheezes, Tachypneic. No: Clear to Auscultation, Respiratory Distress, Accessory Muscle Use Cardiovascular: Present: Regular Rate and Rhythm Abdomen: No: Tenderness, Rebound, Guarding Upper Extremity: Present: Normal ROM Lower Extremity: Present: Normal ROM Neurological: Present: GCS=15, Speech Normal Skin: Present: Warm, Dry, Normal Color. No: Rashes Psychiatric: Present: Alert, Oriented x 3 Medical Decision Making ED Course and Treatment: 57-year-old female with a history of asthma presents with asthma exacerbation Patient given 125 of Solu-Medrol and 2 DuoNeb's. Chest x-ray: No infiltrate or effusion no cardiomegaly EKG: Normal sinus rhythm at 85 bpm normal axis normal intervals no ST elevations QTC 414 Patient reassessment: After medications the lungs are clear to auscultation. Vital signs are stable. Patient is ambulating with a steady gait and feeling much better. Patient was advised to continue the Levaquin as prescribed by her primary care physician. She was advised to discontinue the Medrol Dosepak and start prednisone daily for the next 4 days. Patient was advised to use her nebulizer 3 times daily as needed for cough/shortness of breath. Patient was advised to return if symptoms worsen persist or if new concerning symptoms develop. Patient verbalizes understanding of discharge instructions and need for immediate followup. All aspects of this case were discussed the attending of record. Impression: Asthma exacerbation Continue albuterol nebulizers 3 times daily as needed for cough Continue Levaquin daily as prescribed by your primary care physician Prednisone daily x4 days Follow-up with primary care physician within the next 2 days Return immediately if symptoms worsen persist or if new concerning symptoms dev elop Reassessment Condition: Re-examined, Improved - RAD Interpretation Radiology Orders: 08/08/18 20:43 CHEST PORTABLE [RAD] Stat - Medication Orders Current Medication Orders: Discontinued Medications Albuterol/Ipratropium (Duoneb 3 Mg/0.5 Mg (3 Ml) Ud) 3 ml IH STAT STA Stop: 08/08/18 20:43 Last Admin: 08/08/18 20:58 Dose: 3 ml Albuterol/Ipratropium (Duoneb 3 Mg/0.5 Mg (3 Ml) Ud) 3 ml IH STAT STA Stop: 08/08/18 21:49 Last Admin: 08/08/18 21:59 Dose: 3 ml Methylprednisolone (Solu-Medrol) 125 mg IVP STAT STA Stop: 08/08/18 20:43 Last Admin: 08/08/18 21:06 Dose: 125 mg IVP Administration Document 08/08/18 21:06 EB ([facility]18 [id number] Charges for Administration # of IVP Administrations 1 Disposition/Present on Arrival - Present on Arrival Any Indicators Present on Arrival: No History of DVT/PE: No History of Uncontrolled Diabetes: No Urinary Catheter: No History of Decub. Ulcer: No History Surgical Site Infection Following: None - Disposition Have Diagnosis and Disposition been Completed?: Yes Diagnosis: Asthma exacerbation Disposition: HOME/ ROUTINE Disposition Time: 22:10 Patient Plan: Discharge Condition: GOOD Discharge Instructions (ExitCare): Asthma, Adult (DC) Additional Instructions: Continue albuterol nebulizers 3 times daily as needed for cough Continue Levaquin daily as prescribed by your primary care physician Prednisone daily x4 days Follow-up with primary care physician within the next 2 days Return immediately if symptoms worsen persist or if new concerning symptoms develop Prescriptions: Albuterol HFA [Ventolin HFA 90 mcg/actuation (8 g)] 2 puff IH [id number] PRN #1 inhaler PRN Reason: Cough Albuterol 0.083% [Albuterol 0.083% Inhal Sally (2.5 mg/3 ml) UD] 1 vial IH TID PRN #1 packet PRN Reason: Cough predniSONE [predniSONE Tab] 3 tab PO DAILY #12 tab Referrals: Ghulam Adrian MD [Primary Care Provider] - Follow up with primary Forms: [employer] (Faroese), WORK NOTE
--- NOTE | 2018-08-09 08:31 | RAD ---
Date of service: 08/08/2018 HISTORY: asthma COMPARISON: 05/18/2018 TECHNIQUE: 1 view obtained. FINDINGS: LUNGS: No active pulmonary disease. PLEURA: No significant pleural effusion identified, no pneumothorax apparent. CARDIOVASCULAR: No aortic atherosclerotic calcification present. Normal cardiac size. No pulmonary vascular congestion. OSSEOUS STRUCTURES: No significant abnormalities. VISUALIZED UPPER ABDOMEN: Normal. OTHER FINDINGS: None. IMPRESSION: No active disease.
--- NOTE | 2018-08-09 10:43 | CARD ---
APPROVED REPORT Date of service: 08/08/2018 EKG Measurement Heart [id number] <Conclusion> Normal sinus rhythm Normal ECG
== END 2018-08-08 23:37 | disposition home or self-care (01) ==
LOC: ED 20:15
DX: J45.901 Unspecified asthma with (acute) exacerbation (principal)
CPT/HCPCS: 71045; 93005; 96374; 99283; J2930

== ENCOUNTER 2018-09-02 12:07 | Emergency (ER) | payer BC ==
[2018-09-02 12:08] VITALS: BMI 30.2
--- NOTE | 2018-09-02 12:33 | ED PDOC ---
Arrival/HPI - General Chief Complaint: Shortness Of Breath Time Seen by Provider: 09/02/18 12:08 Historian: Patient - History of Present Illness Narrative History of Present Illness (Text): 09/02/18 12:30 57 year old F with pmh of Asthma presents complaining of exacerbation since last night. Patient report onset last night but worse today while walking to work. Patient denies any fevers, chills, headache, dizziness, abdominal pain, nausea, vomiting, diarrhea, back pain, neck pain, or any other complaints. Time/Duration: 24 hours Symptom Course: Unchanged Activities at Onset: Light Past Medical History - Provider Review Nursing Documentation Reviewed: Yes - Infectious Disease Hx of Infectious Diseases: None - Tetanus Immunization Tetanus Immunization: Unknown - Reproductive Menopause: Yes - Cardiac Hx Pacemaker: No - Pulmonary Hx Asthma: Yes - Neurological Hx Paralysis: No - HEENT Hx HEENT Disorder: Yes Other/Comment: headaches - Renal Hx Renal Disorder: No - Endocrine/Metabolic Hx Endocrine Disorders: No - Hematological/Oncological Hx Blood Transfusions: No Hx Blood Transfusion Reaction: No - Integumentary Hx Dermatological Disorder: No - Musculoskeletal/Rheumatological Hx Musculoskeletal Disorders: Yes - Gastrointestinal Other/Comment: h/o incarcerated hernia - Genitourinary/Gynecological Hx Genitourinary Disorders: No - Psychiatric Hx Anxiety: Yes Hx Substance Use: No - Surgical History Hx Hysterectomy: Yes Hx Musculoskeletal Surgery: Yes (B/L hammer toe 1991) Other/Comment: BX L BREAST/veins left leg. - Anesthesia Hx Anesthesia: Yes Hx Anesthesia Reactions: No Hx Malignant Hyperthermia: No - Suicidal Assessment Feels Threatened In Home Enviroment: No Family/Social History - Physician Review Nursing Documentation Reviewed: Yes Family/Social History: Unknown Family HX Smoking Status: Never Smoked Hx Alcohol Use: Yes (social) Hx Substance Use: No Hx Substance Use Treatment: No Allergies/Home Meds Allergies/Adverse Reactions: Allergies shrimp Allergy (Intermediate, Verified 09/02/18 12:21) RASH PER PT- DEPENDS ON HOW /WITH WHAT IT SIS COOKED cat dander Allergy (Verified 09/02/18 12:21) ITCHING dog dander Allergy (Verified 09/02/18 12:21) ITCHING Home Medications: Home Meds Medication Instructions Recorded Confirmed Rosuvastatin Calcium [Crestor] 10 mg PO QPM 01/24/15 06/22/18 Albuterol Sulfate [Albuterol 0.09 mg IH QID PRN 06/23/15 06/22/18 Sulfate Hfa] Calcium Carbonate [Tums] 500 mg PO PRN PRN 06/23/15 06/22/18 Cholecalciferol (Vitamin D3) 50,000 unit PO SUN 06/23/15 06/22/18 [Vitamin D] Levalbuterol [Xopenex] 1.25 mg IH TID 06/23/15 06/22/18 Omeprazole [Prilosec] 40 mg PO DAILY 06/25/15 06/22/18 Review of Systems - Physician Review All systems were reviewed & negative as marked: Yes - Review of Systems Respiratory: absent: Cough Gastrointestinal: absent: Abdominal Pain, Diarrhea, Nausea, Vomiting Genitourinary Female: absent: Dysuria, Hematuria Musculoskeletal: absent: Arthralgias, Back Pain, Myalgias Skin: absent: Rash, Laceration Neurological: absent: Headache, Dizziness Physical Exam Vital Signs Reviewed: Yes Vital Signs Temp Pulse Resp BP Pulse Ox 09/02/18 12:16 98.8 F 93 H 20 147/78 96 Temperature: Afebrile Blood Pressure: Normal Pulse: Regular Respiratory Rate: Normal Appearance: Positive for: Well-Appearing, Non-Toxic, Comfortable Pain Distress: Mild Mental Status: Positive for: Alert and Oriented X 3 - Systems Exam Head: Present: Atraumatic, Normocephalic Pupils: Present: PERRL Extroacular Muscles: Present: EOMI Conjunctiva: Present: Normal Mouth: Present: Moist Mucous Membranes Neck: Present: Normal Range of Motion Respiratory/Chest: Present: Wheezes (scattered). No: Respiratory Distress, Accessory Muscle Use Cardiovascular: Present: Regular Rate and Rhythm, Normal S1, S2. No: Murmurs Abdomen: No: Tenderness, Distention, Peritoneal Signs Back: Present: Normal Inspection Upper Extremity: Present: Normal Inspection. No: Cyanosis, Edema Lower Extremity: Present: Normal Inspection. No: Edema Neurological: Present: GCS=15, CN II-XII Intact, Speech Normal Skin: Present: Warm, Dry, Normal Color. No: Rashes Psychiatric: Present: Alert, Oriented x 3, Normal Insight, Normal Concentration Medical Decision Making ED Course and Treatment: 09/02/18 12:34 Impression: 57 year old F presents complaining of exacerbation since last night Plan: -- Labs -- Albuterol -- Medrol -- Reassess and disposition Prior Visits: Notes and results from previous visits were reviewed. Progress Notes: 09/02/18 13:25 mild ashtma pt speakign full sentences in nad. lungs mild wheezing b/l sp nebs streiods symptoms resolved. - Medication Orders Current Medication Orders: Albuterol/Ipratropium (Duoneb 3 Mg/0.5 Mg (3 Ml) Ud) 3 ml IH Q15M WILNER Stop: 09/02/18 13:01 Discontinued Medications Methylprednisolone (Solu-Medrol) 125 mg IVP STAT STA Stop: 09/02/18 12:22 - Scribe Statement The provider has reviewed the documentation as recorded by the Harrison Zaidi All medical record entries made by the Scribe were at my direction and personally dictated by me. I have reviewed the chart and agree that the record accurately reflects my personal performance of the history, physical exam, medical decision making, and the department course for this patient. I have also personally directed, reviewed, and agree with the discharge instructions and disposition. Disposition/Present on Arrival - Present on Arrival Any Indicators Present on Arrival: No History of DVT/PE: No History of Uncontrolled Diabetes: No Urinary Catheter: No History of Decub. Ulcer: No History Surgical Site Infection Following: None - Disposition Have Diagnosis and Disposition been Completed?: Yes Diagnosis: Asthma exacerbation Disposition: HOME/ ROUTINE Disposition Time: 13:25 Patient Problems: Current Active Problems Problem Status Onset Asthma exacerbation Acute Condition: STABLE Discharge Instructions (ExitCare): Asthma in Adults Additional Instructions: return to er with worsening symptoms or concerns. Prescriptions: Albuterol 0.083% [Albuterol 0.083% Inhal Sally (2.5 mg/3 ml) UD] 2.5 mg IH Q4 PRN #20 neb PRN Reason: Wheezing Prednisone 50 mg PO DAILY #5 tab Forms: [employer] (Swazi)
[2018-09-02] MEDS: Albuterol-Ipratrop 3 mg / 0.5 (3 ml) UD IH SCH ×3 (12:36→13:11)
[2018-09-02 13:10] LABS: BASO # 0.04 K/mm3 (0.0-2.0); BASO % 0.5 % (0.0-3.0); EOS # 0.4 (0.0-0.7); HEMOGLOBIN 13.3 g/dL (12.0-16.0); LYMPH % 26.7 % (22.0-35.0); MEAN CELL VOLUME 84.5 fl (80.0-105.0); MEAN CORPUSCULAR HEMOGLOBIN 26.8 pg (25.0-35.0); MEAN CORPUSCULAR HGB CONC 31.7 g/dl (31.0-37.0); MEAN PLATELET VOLUME 12.1 fl (7.0-11.0); MONO # 0.5 (0.1-0.6); MONO % 6.7 % (1.0-6.0); RBC 4.96 10^6/uL (3.5-6.1); RED CELL DISTRIBUTION WIDTH 13.8 % (11.5-14.5); WHITE BLOOD COUNT 7.6 10^3/uL (4.5-11.0)
[2018-09-02 13:14] LABS: ALB/GLOB RATIO 1.2 (1.1-1.8); ALT/SGPT 25 U/L (7-56); AST/SGOT 24 U/L (14-36); BLOOD UREA NITROGEN 14 mg/dL (7-21); CALCIUM 9.3 mg/dL (8.4-10.5); GFR NON-AFRICAN AMERICAN > 60
[2018-09-02 13:15] LABS: INR 1.04; PARTIAL THROMBOPLASTIN TIME 31.5 Seconds (26.9-38.3); PROTHROMBIN TIME 11.8 SECONDS (9.4-12.5)
[2018-09-02 13:27] VITALS: BP 123/72; PULSE 76; RESP 18; TEMP 98; O2SAT 99
== END 2018-09-02 13:35 | disposition home or self-care (01) ==
LOC: ED 12:07
DX: J45.901 Unspecified asthma with (acute) exacerbation (principal)
CPT/HCPCS: 80053; 85025; 85610; 85730; 96374; 99283; J2930